=== PATIENT | male | born 1970 | race Caucasian/White ===

== ENCOUNTER 2017-01-26 09:16 | Emergency (ER) | payer BC ==
[2017-01-26] MEDS ORDERED: Albuterol/Ipratropium 3.0-0.5 MG/3 ML Neb Soln NEB ONE (09:32)
--- NOTE | 2017-01-26 09:33 | EDM.PDOC ---
ED HISTORY OF PRESENT ILLNESS - General Chief Complaint: Respiratory Problem Stated Complaint: POSSIBLE LUNG INFECTION Time Seen by Provider: 01/26/17 09:33 Source of Information: Reports: Patient - History of Present Illness INITIAL COMMENTS - FREE TEXT/NARRATIVE: HISTORY AND PHYSICAL: History of present illness: [] For one week increasing in severity keeps patient awake at night nonproductive No fever nausea vomiting chills sweats Review of systems: As per history of present illness and below otherwise all systems reviewed and negative. Past medical history: As per history of present illness and as reviewed below otherwise noncontributory. Surgical history: As per history of present illness and as reviewed below otherwise noncontributory. Social history: No reported history of drug or alcohol abuse. Family history: As per history of present illness and as reviewed below otherwise noncontributory. Physical exam: HEENT: Atraumatic, normocephalic, pupils reactive, negative for conjunctival pallor or scleral icterus, mucous membranes moist, throat clear, neck supple, nontender, trachea midline. Lungs: Clear to auscultation, breath sounds equal bilaterally, chest nontender. Heart: S1S2, regular, negative for clicks, rubs, or JVD. Abdomen: Soft, nondistended, nontender. Negative for masses or hepatosplenomegaly. Negative for costovertebral tenderness. Pelvis: Stable nontender. Genitourinary: Deferred. Rectal: Deferred. Extremities: Atraumatic, negative for cords or calf pain. Neurovascular unremarkable. Neuro: Awake, alert, oriented. Cranial nerves II through XII unremarkable. Cerebellum unremarkable. Motor and sensory unremarkable throughout. Exam nonfocal. Diagnostics: [] Chest 2 views Therapeutics: [] Dual neb Azithromycin 500 mg by mouth daily #6 no refill HFA Impression: [] Acute bronchitis Definitive disposition and diagnosis as appropriate pending reevaluation and review of above. - Related Data Allergies/ADRs: Allergies Allergy/AdvReac Type Severity Reaction Status Date / Time No Known Allergies Allergy Verified 01/26/17 09:23 Home Meds: Home Meds Lisinopril 01/26/17 [History] Past Medical History - Past Health History Medical/Surgical History: Denies Medical/Surgical History HEENT History: Reports: None Cardiovascular History: Reports: Hypertension Respiratory History: Reports: None Gastrointestinal History: Reports: GERD Genitourinary History: Reports: None Musculoskeletal History: Reports: Fracture Other Musculoskeletal History: left wrist and left knee Neurological History: Reports: None Psychiatric History: Reports: None Endocrine/Metabolic History: Reports: Obesity/BMI 30+ Hematologic History: Reports: None Immunologic History: Reports: None Oncologic (Cancer) History: Reports: None Dermatologic History: Reports: None - Infectious Disease History Infectious Disease History: Reports: Chicken pox - Past Surgical History Head Surgeries/Procedures: Reports: None HEENT Surgical History: Reports: None Cardiovascular Surgical History: Reports: None Respiratory Surgical History: Reports: None GI Surgical History: Reports: None Male Surgical History: Reports: None Endocrine Surgical History: Reports: None Neurological Surgical History: Reports: None Oncologic Surgical History: Reports: None Social & Family History - Family History Family Medical History: Noncontributory - Tobacco Use Smoking Status *Q: Never Smoker Second Hand Smoke Exposure: Yes - Caffeine Use Caffeine Use: Reports: Coffee - Alcohol Use Days Per Week of Alcohol Use: 3 Number of Drinks Per Day: 3 Total Drinks Per Week: 9 - Recreational Drug Use Recreational Drug Use: No ED ROS GENERAL - Review of Systems Review Of Systems: ROS reveals no pertinent complaints other than HPI. ED EXAM, GENERAL - Physical Exam Exam: See Below Course - Vital Signs Last Recorded V/S: Last Vital Signs Temp 37.1 C 01/26/17 09:23 Pulse 103 H 01/26/17 09:23 Resp 16 01/26/17 09:23 BP 170/90 H 01/26/17 09:23 Pulse Ox 95 01/26/17 09:23 - Orders/Labs/Meds Orders: Active Orders 24 hr Category Date Time Status RT Aerosol Therapy [RC] ASDIRECTED Care 01/26/17 09:32 Active Chest 2V [CR] Stat Exams 01/26/17 09:32 Taken Meds: Medications Discontinued Medications Generic Name Dose Route Start Last Admin Trade Name Freq PRN Reason Stop Dose Admin Albuterol/Ipratropium 3 ml 01/26/17 09:32 01/26/17 09:39 Duoneb 3.0-0.5 Mg/3 Ml NEB 01/26/17 09:33 3 ml ONETIME ONE Administration Departure - Departure Time of Disposition: 10:31 Disposition: Home, Self-Care 01 Condition: good Clinical Impression: Acute bronchitis Forms: ED Department Discharge Additional Instructions: Medication as prescribed Return if symptoms persist or worsen Followup with primary care in 2 weeks The following information is given to patients seen in the emergency department who are being discharged to home. This information is to outline your options for follow-up care. We provide all patients seen in our emergency department with a follow-up referral. The need for follow-up, as well as the timing and circumstances, are variable depending upon the specifics of your emergency department visit. If you don't have a primary care physician on staff, we will provide you with a referral. We always advise you to contact your personal physician following an emergency department visit to inform them of the circumstance of the visit and for follow-up with them and/or the need for any referrals to a consulting specialist. The emergency department will also refer you to a specialist when appropriate. This referral assures that you have the opportunity for follow-up care with a specialist. All of these measure are taken in an effort to provide you with optimal care, which includes your follow-up. Under all circumstances we always encourage you to contact your private physician who remains a resource for coordinating your care. When calling for follow-up care, please make the office aware that this follow-up is from your recent emergency room visit. If for any reason you are refused follow-up, please contact the [facility] emergency department at and asked to speak to the emergency department charge nurse. - My Orders Last 24 Hours: My Active Orders 01/26/17 09:32 RT Aerosol Therapy [RC] ASDIRECTED Chest 2V [CR] Stat - Assessment/Plan Last 24 Hours: My Active Orders 01/26/17 09:32 RT Aerosol Therapy [RC] ASDIRECTED Chest 2V [CR] Stat
[2017-01-26 10:49] VITALS: BP 159/77
--- NOTE | 2017-01-28 09:56 | CR ---
EXAM DATE: 01/26/17 PATIENT'S AGE: 46 Patient: LINSEY VALENCIA Facility: [place], [place] Site . Site : 1970 Study: XRay Chest [id number] 10:22:07 AM Ordering Physician: Doctor Taylor Final Report: HISTORY: Cough. Findings: PA and lateral view of the chest is provided. The lung volumes are diminished. The lungs are clear and there is no evidence for pleural effusion or pneumothorax. Cardiac silhouette size is on the upper limits of normal. This could be related to low lung volumes. Impression: Diminished lung volumes. The lungs are clear. Dictated by Vikash Condon MD @ Jan 26 2017 10:34AM (Electronic Signature) Report Signed by Proxy and Original Signed Document filed in the Medical Record. MTDD
== END 2017-01-26 10:45 | disposition home or self-care (01) ==
LOC: MW.ED 09:16
DX: J20.9 Acute bronchitis, unspecified (principal); I10 Essential (primary) hypertension
CPT/HCPCS: 71020; 71020-26; 94664; 99283; 99284

== ENCOUNTER 2017-02-01 11:42 | Inpatient (IN) | payer BC ==
[2017-02-01] MEDS ORDERED: Sodium Chloride 0.9% 2.5 ML Syringe FLUSH PRN (11:44)
[2017-02-01] MEDS ORDERED: Sodium Chloride 0.9% 10 ML Syringe FLUSH PRN (11:44)
[2017-02-01] MEDS ORDERED: Sodium Chloride 0.9% 1,000 ML IV ONE (11:44)
--- NOTE | 2017-02-01 11:46 | EDM.PDOC ---
ED HPI GENERAL MEDICAL PROBLEM - General Chief Complaint: Gastrointestinal Problem Stated Complaint: BLEEDING Time Seen by Provider: 02/01/17 11:43 - History of Present Illness INITIAL COMMENTS - FREE TEXT/NARRATIVE: HISTORY AND PHYSICAL: History of present illness: Patient 46-year-old white male concern of syncope times several associated with hematemesis x4-5 in last 24 hours and blood per rectum times multiple last 24 hours patient states he is somewhat surprising one year prior and was admitted to the hospital there they did upper and lower scope that was unremarkable. He denies chest pain shortness of breath, paramedics reported approximately 1 L of gross blood at the scene this occurred at home the patient reportedly syncopized also. Review of systems: As per history of present illness and below otherwise all systems reviewed and negative. Past medical history: As per history of present illness and as reviewed below otherwise noncontributory. Surgical history: As per history of present illness and as reviewed below otherwise noncontributory. Social history: No reported history of drug or alcohol abuse. Family history: As per history of present illness and as reviewed below otherwise noncontributory. Physical exam: HEENT: Atraumatic, normocephalic, pupils reactive, negative for conjunctival pallor or scleral icterus, mucous membranes moist, throat clear, neck supple, nontender, trachea midline. Lungs: Clear to auscultation, breath sounds equal bilaterally, chest nontender. Heart: S1S2, regular, negative for clicks, rubs, or JVD. Abdomen: Soft, nondistended, nontender. Negative for masses or hepatosplenomegaly. Negative for costovertebral tenderness. Pelvis: Stable nontender. Genitourinary: Deferred. Rectal: Deferred. Extremities: Atraumatic, negative for cords or calf pain. Neurovascular unremarkable. Neuro: Awake, alert, oriented. Cranial nerves II through XII unremarkable. Cerebellum unremarkable. Motor and sensory unremarkable throughout. Exam nonfocal. Diagnostics: CBC CMP troponin PT INR EKG chest x-ray UA type and screen Therapeutics: IV O2 monitor 0.9 normal saline 1 L bolus Protonix 80 mg bolus platonically milligram an hour drip Impression: #1 GI bleed #2 syncope Definitive disposition and diagnosis as appropriate pending reevaluation and review of above. Abdominal Pain Score (Numeric/FACES): 2 Left Ankle Pain Score (Numeric/FACES): 10 - Related Data Allergies Allergy/AdvReac Type Severity Reaction Status Date / Time No Known Allergies Allergy Verified 02/01/17 11:50 Home Meds: Home Meds Lisinopril 10 mg PO DAILY 01/26/17 [History] Past Medical History - Past Health History Medical/Surgical History: Denies Medical/Surgical History HEENT History: Reports: None Cardiovascular History: Reports: Hypertension Respiratory History: Reports: None Gastrointestinal History: Reports: GERD Genitourinary History: Reports: None Musculoskeletal History: Reports: Fracture Other Musculoskeletal History: left wrist and left knee Neurological History: Reports: None Psychiatric History: Reports: None Endocrine/Metabolic History: Reports: Obesity/BMI 30+ Hematologic History: Reports: None Immunologic History: Reports: None Oncologic (Cancer) History: Reports: None Dermatologic History: Reports: None - Infectious Disease History Infectious Disease History: Reports: Chicken pox - Past Surgical History Head Surgeries/Procedures: Reports: None HEENT Surgical History: Reports: None Cardiovascular Surgical History: Reports: None Respiratory Surgical History: Reports: None GI Surgical History: Reports: None Male Surgical History: Reports: None Endocrine Surgical History: Reports: None Neurological Surgical History: Reports: None Oncologic Surgical History: Reports: None Social & Family History - Family History Family Medical History: Noncontributory - Tobacco Use Smoking Status *Q: Never Smoker Second Hand Smoke Exposure: Yes - Caffeine Use Caffeine Use: Reports: Coffee - Alcohol Use Days Per Week of Alcohol Use: 3 Number of Drinks Per Day: 3 Total Drinks Per Week: 9 - Recreational Drug Use Recreational Drug Use: No ED ROS GENERAL - Review of Systems Review Of Systems: ROS reveals no pertinent complaints other than HPI. ED EXAM, GENERAL - Physical Exam Exam: See Below (See dictation) Course - Vital Signs Last Recorded V/S: Last Vital Signs Temp 37.6 C 02/03/17 20:00 Pulse 96 02/03/17 21:00 Resp 14 02/03/17 23:00 BP 132/84 02/03/17 23:00 Pulse Ox 98 02/03/17 23:00 - Orders/Labs/Meds Orders: Medication Orders Hydromorphone HCl (Dilaudid) 0.5 mg IVPUSH Q2H PRN PRN Reason: Pain (severe 7-10) Last Admin: 02/03/17 20:25 Dose: 0.5 mg Admin: 02/03/17 02:01 Dose: 0.5 mg Admin: 02/02/17 19:33 Dose: 0.5 mg Pantoprazole Sodium 80 mg/ (Sodium Chloride) 100 mls @ 10 mls/hr IV Q10H JANEE Last Admin: 02/03/17 16:32 Dose: 10 mls/hr Infusion: 02/03/17 16:29 Dose: 10 mls/hr Admin: 02/03/17 06:29 Dose: 10 mls/hr Infusion: 02/03/17 06:01 Dose: 10 mls/hr Admin: 02/02/17 20:01 Dose: 10 mls/hr Infusion: 02/02/17 19:30 Dose: 10 mls/hr Admin: 02/02/17 09:30 Dose: 10 mls/hr Lorazepam (Ativan) 0 mg IVPUSH Q4H PRN; Protocol PRN Reason: CIWAA Ondansetron HCl (Zofran) 4 mg IVPUSH Q6H JANEE Last Admin: 02/03/17 19:19 Dose: Not Given Admin: 02/03/17 14:23 Dose: Not Given Admin: 02/03/17 06:28 Dose: 4 mg Admin: 02/03/17 02:01 Dose: 4 mg Admin: 02/02/17 19:34 Dose: 4 mg Admin: 02/02/17 14:38 Dose: Not Given Admin: 02/02/17 10:11 Dose: Not Given Admin: 02/02/17 00:57 Dose: 4 mg Admin: 02/01/17 19:28 Dose: 4 mg Admin: 02/01/17 14:32 Dose: 4 mg Sodium Chloride (Saline Flush) 10 ml FLUSH ASDIRECTED PRN PRN Reason: Keep Vein Open Sodium Chloride (Saline Flush) 2.5 ml FLUSH ASDIRECTED PRN PRN Reason: Keep Vein Open Labs: Laboratory Tests 02/01/17 02/01/17 02/01/17 Range/Units 11:55 11:55 11:55 WBC 9.21 (4.0-11.0) K/uL RBC 2.69 L (4.50-5.90) M/uL Hgb 8.2 L (13.0-17.0) g/dL Hct 24.6 L (38.0-50.0) % MCV 91.4 (80.0-98.0) fL MCH 30.5 (27.0-32.0) pg MCHC 33.3 (31.0-37.0) g/dL RDW Std Deviation 52.9 (28.0-62.0) fl RDW Coeff of Tim[place] 16 H (11.0-15.0) % Plt Count 107 L (150-400) K/uL MPV 10.90 (7.40-12.00) fL Add Manual Diff YES Neutrophils % (Manual) 81 H (48.0-80.0) % Band Neutrophils % 8 % Lymphocytes % (Manual) 7 L (16.0-40.0) % Monocytes % (Manual) 3 (0.0-15.0) % Eosinophils % (Manual) 1 (0.0-7.0) % Nucleated RBC % 0.0 /100WBC Absolute Seg Neuts 7.5 Band Neutrophils # 0.7 Lymphocytes # (Manual) 0.6 Monocytes # (Manual) 0.3 Eosinophils # (Manual) 0.1 Nucleated RBCs # 0 K/uL Plt Morphology Comment INR 1.58 H (0.86-1.11) Sodium 136 (136-146) mmol/L Potassium 4.9 (3.5-5.1) mmol/L Chloride 108 (98-110) mmol/L Carbon Dioxide 17 L (21-31) mmol/L BUN 36 H (6.0-23.0) mg/dL Creatinine 0.8 (0.6-1.5) mg/dL Est Cr Clr Drug Dosing 114.15 mL/min Estimated GFR (MDRD) > 60.0 ml/min Glucose 156 H (60-110) mg/dL Calcium 8.1 L (8.8-10.8) mg/dL Total Bilirubin 2.2 H (0.1-1.5) mg/dL AST 35 (5-40) IU/L ALT 28 (8-54) IU/L Alkaline Phosphatase 49 (40-150) Total Protein 5.0 L (6.0-8.0) g/dL Albumin 2.7 L (3.5-5.0) g/dL Globulin 2.3 (2.0-3.5) g/dL Albumin/Globulin Ratio 1.2 L (1.3-2.8) Amylase 42 (10-90) U/L Ethyl Alcohol < 10.0 mg/dL Blood Type Antibody Screen Crossmatch 02/01/17 Range/Units 11:55 WBC (4.0-11.0) K/uL RBC (4.50-5.90) M/uL Hgb (13.0-17.0) g/dL Hct (38.0-50.0) % MCV (80.0-98.0) fL MCH (27.0-32.0) pg MCHC (31.0-37.0) g/dL RDW Std Deviation (28.0-62.0) fl RDW Coeff of Tim[place] (11.0-15.0) % Plt Count (150-400) K/uL MPV (7.40-12.00) fL Add Manual Diff Neutrophils % (Manual) (48.0-80.0) % Band Neutrophils % % Lymphocytes % (Manual) (16.0-40.0) % Monocytes % (Manual) (0.0-15.0) % Eosinophils % (Manual) (0.0-7.0) % Nucleated RBC % /100WBC Absolute Seg Neuts Band Neutrophils # Lymphocytes # (Manual) Monocytes # (Manual) Eosinophils # (Manual) Nucleated RBCs # K/uL Plt Morphology Comment INR (0.86-1.11) Sodium (136-146) mmol/L Potassium (3.5-5.1) mmol/L Chloride (98-110) mmol/L Carbon Dioxide (21-31) mmol/L BUN (6.0-23.0) mg/dL Creatinine (0.6-1.5) mg/dL Est Cr Clr Drug Dosing mL/min Estimated GFR (MDRD) ml/min Glucose (60-110) mg/dL Calcium (8.8-10.8) mg/dL Total Bilirubin (0.1-1.5) mg/dL AST (5-40) IU/L ALT (8-54) IU/L Alkaline Phosphatase (40-150) Total Protein (6.0-8.0) g/dL Albumin (3.5-5.0) g/dL Globulin (2.0-3.5) g/dL Albumin/Globulin Ratio (1.3-2.8) Amylase (10-90) U/L Ethyl Alcohol mg/dL Blood Type A POSITIVE Antibody Screen NEGATIVE Crossmatch See Detail Meds: Medications Generic Name Dose Route Start Last Admin Trade Name Freq PRN Reason Stop Dose Admin Hydromorphone HCl 0.5 mg 02/01/17 13:12 02/03/17 20:25 Dilaudid IVPUSH 0.5 mg Q2H PRN Administration Pain (severe 7-10) Pantoprazole Sodium 80 mg/ 100 mls @ 10 mls/hr 02/02/17 10:00 02/03/17 16:32 Sodium Chloride IV 10 mls/hr Q10H JANEE Administration Lorazepam 0 mg 02/02/17 14:08 Ativan IVPUSH Q4H PRN CIWAA Protocol Ondansetron HCl 4 mg 02/01/17 13:15 02/03/17 19:19 Zofran IVPUSH Not Given Q6H JANEE Sodium Chloride 10 ml 02/01/17 11:44 Saline Flush FLUSH ASDIRECTED PRN Keep Vein Open Sodium Chloride 2.5 ml 02/01/17 11:44 Saline Flush FLUSH ASDIRECTED PRN Keep Vein Open Discontinued Medications Generic Name Dose Route Start Last Admin Trade Name Freq PRN Reason Stop Dose Admin Diphenhydramine HCl 25 mg 02/01/17 13:22 02/01/17 14:33 Benadryl IV 02/01/17 13:23 25 mg ONETIME ONE Administration Fentanyl Confirm 02/02/17 08:54 02/02/17 11:01 Sublimaze Administered 02/02/17 08:55 Not Given Dose 100 mcg .ROUTE .STK-MED ONE Furosemide 20 mg 02/01/17 13:22 02/01/17 14:33 Lasix IVPUSH 02/01/17 13:23 20 mg ONETIME ONE Administration Furosemide 20 mg 02/03/17 10:07 02/03/17 10:22 Lasix IVPUSH 02/03/17 10:08 20 mg ONETIME ONE Administration Sodium Chloride 1,000 mls @ 999 mls/hr 02/01/17 11:44 02/01/17 12:02 Normal Saline IV 02/01/17 12:44 999 mls/hr STAT ONE Administration Pantoprazole Sodium 80 mg/ 100 mls @ 10 mls/hr 02/01/17 12:45 02/01/17 22:45 Sodium Chloride IV 10 mls/hr .Continuous JANEE Administration Sodium Chloride 1,000 mls @ 175 mls/hr 02/01/17 13:15 02/03/17 04:54 Normal Saline IV 175 mls/hr ASDIRECTED JANEE Administration Propofol Confirm 02/02/17 08:55 02/02/17 11:01 Diprivan 50 Ml Administered 02/02/17 08:56 Not Given Dose 50 mls @ as directed .ROUTE .STK-MED ONE Magnesium Sulfate 2 gm/ Premix 50 mls @ 50 mls/hr 02/03/17 07:16 02/03/17 07: 34 IV 02/03/17 08:15 50 mls/hr ONETIME ONE Administration Iopamidol 100 ml 02/03/17 07:52 02/03/17 07:55 Isovue-370 (76%) IVPUSH 02/03/17 07:53 100 ml ONETIME STA Administration Midazolam HCl Confirm 02/02/17 08:53 02/02/17 11:01 Versed 1 Mg/Ml Administered 02/02/17 08:54 Not Given Dose 2 mg .ROUTE .STK-MED ONE Ondansetron HCl 4 mg 02/01/17 12:51 02/01/17 12:56 Zofran IVPUSH 02/01/17 12:52 4 mg STAT STA Administration Pantoprazole Sodium 80 mg 02/01/17 12:34 02/01/17 12:45 Protonix Iv IVPUSH 02/01/17 12:35 80 mg .BOLUS ONE Administration Departure - Departure Time of Disposition: 02:00 Disposition: Admitted As Inpatient 65 Condition: fair Clinical Impression: Gastrointestinal hemorrhage, Syncope
[2017-02-01 12:26] LABS: CHLORIDE,CL 108 mmol/L (98-110); SODIUM,NA 136 mmol/L (136-146)
[2017-02-01] MEDS ORDERED: Pantoprazole 40 MG Vial IVPUSH ONE (12:34)
[2017-02-01] MEDS ORDERED: Ondansetron 4 MG/2 ML SDV IVPUSH STA (12:51)
[2017-02-01] MEDS: Pantoprazole 80 MG in Sodium Chloride 0.9% 100 ML IV SCH ×2 (12:56→22:45)
[2017-02-01] MEDS ORDERED: Furosemide 20 MG/2 ML VIAL IVPUSH ONE (13:22)
[2017-02-01] MEDS ORDERED: diphenhydrAMINE 50 MG/ML SDV IV ONE (13:22)
--- NOTE | 2017-02-01 13:39 | PCM.CONS ---
H&P History of Present Illness - General Date of Service: 02/01/17 Admit Problem/Dx: Admission Diagnosis/Problem Admission Diagnosis/Problem Bleeding gastric erosion Source of Information: Patient History Limitations: Reports: No limitations - History of Present Illness Initial Comments - Free Text/Narative: Patient is a 46-year-old male with a past medical history significant for upper GI bleed. This occurred last year after an episode of drinking. The patient had an upper GI scope performed by my partner which was normal. He was discharged on pantoprazole. Or the past year the patient denies ever having any stigmata of GI bleed. He has not been taking any prescription medications. He has a primary care physician he sees in [place] as he only works in [place] seasonally. Last night around midnight he started vomiting blood. This was followed by black tarry stools and syncope. This morning he went to work. When he got to work he went to the bathroom and the next thing he remembers is waking up in a pool of bloody vomit with a hole through the wall of the bathroom. He was brought to the ED by EMS. On arrival his vital signs were stable. His hemoglobin was 8.2 compared to 10.3 last year. An NG was placed which returned a large amount of old blood. The patient denies any NSAID use. He has occasional heartburn but takes [id number] medications for this intermittently. He denies any current or past abdominal pain. He denies any family history of cancer, ulcers, or bleeding/clotting disorders. He drinks intermittently. His last drink was 2 weeks ago. He denies smoking or drug use. He denies any other past medical history or surgical history. On reviewing his past medical history, however, he dose take Lisinopril for high blood pressure. - Related Data Allergies/Adverse Reactions: Allergies Allergy/AdvReac Type Severity Reaction Status Date / Time No Known Allergies Allergy Verified 02/01/17 11:50 Home Medications: Home Meds Lisinopril 10 mg PO DAILY 01/26/17 [History] Past Medical History - Past Health History Medical/Surgical History: Denies Medical/Surgical History HEENT History: Reports: None Cardiovascular History: Reports: Hypertension Respiratory History: Reports: None Gastrointestinal History: Reports: GERD Genitourinary History: Reports: None Musculoskeletal History: Reports: Fracture Other Musculoskeletal History: left wrist and left knee Neurological History: Reports: None Psychiatric History: Reports: None Endocrine/Metabolic History: Reports: Obesity/BMI 30+ Hematologic History: Reports: None Immunologic History: Reports: None Oncologic (Cancer) History: Reports: None Dermatologic History: Reports: None - Infectious Disease History Infectious Disease History: Reports: Chicken pox - Past Surgical History Head Surgeries/Procedures: Reports: None HEENT Surgical History: Reports: None Cardiovascular Surgical History: Reports: None Respiratory Surgical History: Reports: None GI Surgical History: Reports: None Male Surgical History: Reports: None Endocrine Surgical History: Reports: None Neurological Surgical History: Reports: None Oncologic Surgical History: Reports: None Social & Family History - Family History Family Medical History: Noncontributory - Tobacco Use Smoking Status *Q: Never Smoker Second Hand Smoke Exposure: Yes - Caffeine Use Caffeine Use: Reports: Coffee Caffeine Use Comment: 1-2cups/day - Alcohol Use Days Per Week of Alcohol Use: 3 Number of Drinks Per Day: 3 Total Drinks Per Week: 9 - Recreational Drug Use Recreational Drug Use: No H&P Review of Systems - Review of Systems: Review Of Systems: ROS reveals no pertinent complaints other than HPI. Exam - Exam Exam: See Below - Vital Signs Vital Signs: Last Vital Signs Temp 36.6 C 02/01/17 11:43 Pulse 99 02/01/17 12:46 Resp 19 02/01/17 12:46 BP 101/50 L 02/01/17 12:46 Pulse Ox 100 02/01/17 12:46 Weight: 113.398 kg - Exam General: alert, oriented, cooperative HEENT: Conjunctiva clear, EACs clear Lungs: Clear to auscultation, Normal respiratory effort Cardiovascular: regular rate, regular rhythm Abdomen: soft, other (Abdomen is obese with striae. It is soft, nontender, and nondistended. NG with dark bloody fluid ) Rectal (Males) Exam: Deferred Extremities: normal inspection, normal pulses Skin: warm, dry, intact Neuro Extensive - Mental Status: alert, normal mood/affect, normal cognition Psychiatric: alert, normal affect, normal mood - Patient Data Result Diagrams: 02/01/17 11:55 02/01/17 11:55 Consult PN Assessment/Plan Procedures: Procedures CHEST X-RAY 2VW FRONTAL&LATL (01/26/17) COMPLETE CBC W/AUTO DIFF WBC (02/22/16) COMPREHEN METABOLIC PANEL (02/22/16) EGD DIAGNOSTIC BRUSH WASH (02/22/16) EMERGENCY DEPT VISIT (01/26/17) EVALUATE PT USE OF INHALER (01/26/17) PROTHROMBIN TIME (02/22/16) ROUTINE VENIPUNCTURE (02/22/16) THROMBOPLASTIN TIME PARTIAL (02/22/16) (1) GI bleed SNOMED Code(s): 29648438 Code(s): K92.2 - GASTROINTESTINAL HEMORRHAGE, UNSPECIFIED Current Visit: No Qualifiers: GI bleed type/associated pathology: unspecified gastrointestinal hemorrhage type Qualified Code(s): K92.2 - Gastrointestinal hemorrhage, unspecified Problem List Initiated/Reviewed/Updated: Yes My Orders last 24 hours: My Active Orders 02/01/17 13:32 Head wo Cont [CT] Routine Plan: Patient is a 46-year-old male with a recurrent GI bleed. I suspect this is coming from an upper GI source. He is currently stable in the emergency room with no evidence of active bleeding. I recommend admission to medicine, IV PPI therapy, n.p.o., q6 hours hemoglobin checks and resuscitation. The patient and I discussed repeating an upper GI after he is resuscitated and as long as he stays stable overnight. We discussed the procedure as well as expected perioperative course. I explained that i would be taking biopsies of his stomach and any abnormal pathology that I see. We discussed the risks including bleeding and perforation. Looking back at his past medical history he has had an 18 pound weight loss since he was seen last year. I do not know if this is intentional or not. It would be helpful if we could get notes from his primary care provider down in [place]. If his upper GI is normal the next step would be planning for a colonoscopy. If he has no further episodes of bleeding this could be done next week as an outpatient. If he bleeds again or his hemoglobin continues to drift down and he now starts requiring transfusions I may need to scope him sooner than tomorrow morning. If he becomes hemodynamically unstable he would need to be transferred to another facility. Will continue to follow patient during this admission. Appreciate medicines care of the patient. Please call with any questions or concerns.
[2017-02-01] MEDS: Sodium Chloride 0.9% 1,000 ML IV SCH ×2 (14:00→18:04)
--- NOTE | 2017-02-01 14:18 | PCM.HP ---
H&P History of Present Illness - General Date of Service: 02/01/17 Admit Problem/Dx: Admission Diagnosis/Problem Admission Diagnosis/Problem Bleeding gastric erosion Source of Information: Patient History Limitations: Reports: No limitations - History of Present Illness Initial Comments - Free Text/Narative: Feb 01, 2017: The patient is a 46-year-old gentleman who presented to the emergency room after vomiting blood. The patient reports that around midnight he was awoken with feelings of nausea and mid of vomiting blood. Patient says that this was followed by black, tarry stools. The patient has denied use of NSAIDs or excessive use of aspirin. Patient was having problems with GI bleed approximately 10 months ago in which he was scoped and no source of the bleeding was found. The patient today in the emergency room was noted to have dark colored blood with clots an NG tube. The patient also had felt dizzy and lightheaded and had a syncopal episode while in a hotel. Patient normally lives in [place] and is here part-time working. The patient has denied any abdominal pain. The patient says that he does not use tobacco or alcohol frequently. The patient is also reported that he has some kind of abnormalities with his red blood cells over the patient is not sure exactly what this is. The patient has been taking lisinopril chronically for his hypertension. Up until this incident the patient had been in his usual state of health. Onset of Symptoms: Reports: today Duration of Symptoms: Reports: Hour(s):, Getting worse Location: Reports: abdomen Quality: Reports: Dull Improves with: Reports: None Worsens with: Reports: None Associated Symptoms: Reports: nausea/vomiting, other (dizziness and lightheadedness) - Related Data Allergies/Adverse Reactions: Allergies Allergy/AdvReac Type Severity Reaction Status Date / Time No Known Allergies Allergy Verified 02/01/17 11:50 Home Medications: Home Meds Lisinopril 10 mg PO DAILY 01/26/17 [History] Past Medical History - Past Health History Medical/Surgical History: Denies Medical/Surgical History HEENT History: Reports: None Cardiovascular History: Reports: Hypertension Respiratory History: Reports: None Gastrointestinal History: Reports: GERD, GI bleed Genitourinary History: Reports: None Musculoskeletal History: Reports: Fracture Other Musculoskeletal History: left wrist and left knee Neurological History: Reports: None Psychiatric History: Reports: None Endocrine/Metabolic History: Reports: Obesity/BMI 30+ Hematologic History: Reports: None Immunologic History: Reports: None Oncologic (Cancer) History: Reports: None Dermatologic History: Reports: None - Infectious Disease History Infectious Disease History: Reports: Chicken pox - Past Surgical History Head Surgeries/Procedures: Reports: None HEENT Surgical History: Reports: None Cardiovascular Surgical History: Reports: None Respiratory Surgical History: Reports: None GI Surgical History: Reports: None Male Surgical History: Reports: None Endocrine Surgical History: Reports: None Neurological Surgical History: Reports: None Oncologic Surgical History: Reports: None Social & Family History - Family History Family Medical History: Noncontributory - Tobacco Use Smoking Status *Q: Never Smoker Second Hand Smoke Exposure: Yes - Caffeine Use Caffeine Use: Reports: Coffee Caffeine Use Comment: 1-2cups/day - Alcohol Use Days Per Week of Alcohol Use: 3 Number of Drinks Per Day: 3 Total Drinks Per Week: 9 - Recreational Drug Use Recreational Drug Use: No H&P Review of Systems - Review of Systems: Review Of Systems: See Below General: Reports: weakness HEENT: Reports: no symptoms Pulmonary: Reports: No Symptoms Cardiovascular: Reports: no symptoms Gastrointestinal: Reports: Abdominal pain, Black stool, Hematemesis, Hematochezia, Melena Genitourinary: Reports: no symptoms Musculoskeletal: Reports: no symptoms Skin: Reports: no symptoms Psychiatric: Reports: no symptoms Neurological: Reports: Dizziness, Syncope Hematologic/Lymphatic: Reports: anemia, easy bleeding Immunologic: Reports: no symptoms Exam - Exam Exam: See Below - Vital Signs Vital Signs: Last Vital Signs Temp 36.6 C 02/01/17 11:43 Pulse 99 02/01/17 12:46 Resp 19 02/01/17 12:46 BP 101/50 L 02/01/17 12:46 Pulse Ox 100 02/01/17 12:46 Weight: 113.398 kg - Exam Quality Assessment: supplemental oxygen General: alert, oriented, cooperative, mild distress HEENT: Conjunctiva clear, EOMI, Mucosa moist & pink Neck: supple, trachea midline Lungs: Clear to auscultation, Normal respiratory effort Cardiovascular: regular rate, regular rhythm, normal S1, normal S2 Abdomen: normal bowel sounds, soft. No: organomegaly, guarding, rigidity, rebound Back Exam: normal inspection Extremities: normal inspection Skin: warm, dry, intact Neurological: cranial nerves intact Neuro Extensive - Mental Status: alert, oriented x3 - Patient Data Result Diagrams: 02/01/17 11:55 02/01/17 11:55 *Q Meaningful Use (ADM) - VTE *Q VTE Criteria *Q: VTE Mechanical Contraindications *Q: At Risk for Falls VTE Pharmacological Contraindications *Q: Active Hemorrhage - VTE Risk Assess *Q Each Risk Factor Represents 1 Point: Age 41 - 59 years Total Score 1 Point Risk Factors: 1 - Stroke *Q Stroke Criteria *Q: - AMI *Q AMI Criteria *Q: - Problem List (1) GI bleed SNOMED Code(s): 05357813 ICD Code: K92.2 - GASTROINTESTINAL HEMORRHAGE, UNSPECIFIED Status: Acute Priority: High Current Visit: Yes Qualifiers: GI bleed type/associated pathology: unspecified gastrointestinal hemorrhage type Qualified Code(s): K92.2 - Gastrointestinal hemorrhage, unspecified (2) Coagulopathy SNOMED Code(s): 04206289 ICD Code: D68.9 - COAGULATION DEFECT, UNSPECIFIED Status: Acute Priority : High Current Visit: Yes (3) Thrombocytopenia SNOMED Code(s): 067592639 ICD Code: D69.6 - THROMBOCYTOPENIA, UNSPECIFIED Status: Acute Current Visit: No (4) Anemia due to acute blood loss SNOMED Code(s): 395657208 ICD Code: D62 - ACUTE POSTHEMORRHAGIC ANEMIA Status: Acute Priority: High Current Visit: Yes Problem List Initiated/Reviewed/Updated: Yes Orders Last 24hrs: Active Orders 24 hr Category Date Time Status Patient Status [ADT] Routine ADT 02/01/17 13:13 Active Notify Provider Consults [RC] ASDIRECTED Care 02/01/17 13:19 Active Oxygen Therapy [RC] PRN Care 02/01/17 13:13 Active Up ad Lorrie [RC] ASDIRECTED Care 02/01/17 13:12 Active VTE/DVT Education [RC] PER UNIT ROUTINE Care 02/01/17 13:13 Active Vital Signs [RC] Q4H Care 02/01/17 13:13 Active Consult to Physician [CONS] Routine Cons 02/01/17 13:12 Active Nothing per Oral Now Diet [DIET] Diet 02/01/17 Dinner Active Head wo Cont [CT] Routine Exams 02/01/17 13:32 Ordered RED BLOOD CELLS LP [BBK] Stat Lab 02/01/17 11:55 Results HYDROmorphone [Dilaudid] Med 02/01/17 13:12 Active 0.5 mg IVPUSH Q2H PRN Ondansetron [Zofran] Med 02/01/17 13:15 Active 4 mg IVPUSH Q6H Sodium Chloride 0.9% [Normal Saline] 1,000 ml Med 02/01/17 13:15 Active IV ASDIRECTED Transfuse PRBC [Transfuse Red Blood Cells] [COMM] Oth 02/01/17 13:22 Ordered Urgent VTE Pharmacological Contraindications [AST] Per Unit Oth 02/01/17 13:12 Ordered Routine Resuscitation Status Routine Resus Stat 02/01/17 13:12 Ordered Medication Orders Hydromorphone HCl (Dilaudid) 0.5 mg IVPUSH Q2H PRN PRN Reason: Pain (severe 7-10) Pantoprazole Sodium 80 mg/ (Sodium Chloride) 100 mls @ 10 mls/hr IV .Continuous JANEE Last Admin: 02/01/17 12:56 Dose: 10 mls/hr Sodium Chloride (Normal Saline) 1,000 mls @ 175 mls/hr IV ASDIRECTED JANEE Ondansetron HCl (Zofran) 4 mg IVPUSH Q6H JANEE Sodium Chloride (Saline Flush) 10 ml FLUSH ASDIRECTED PRN PRN Reason: Keep Vein Open Sodium Chloride (Saline Flush) 2.5 ml FLUSH ASDIRECTED PRN PRN Reason: Keep Vein Open Assessment/Plan Comment:: Feb 01, 2017: The patient is a 46-year-old gentleman who came into the emergency department with GI bleed. The patient has had dark red blood as opposed bright red blood. He will be admitted to intensive care for monitoring with electronic ICU. I've also ordered transfusion of 2 units of packed red blood cells. The patient is also on a continuous Protonix drip. Surgery has been consulted to assist in the management of this patient in particular if endoscopy evaluation is needed. The patient normally has hypertension but he will be kept n.p.o. in his medicines will be held for right now. The patient's hemoglobin is at 8.2 g/dL and these will be monitored every 6 hours to track trends to see if the patient still continuing to bleed. It's patient does continue to bleed or he requires pressor support or otherwise becomes unstable we'll consider the patient for transfer. For now, the patient is hemodynamically stable and his vital signs of be monitored very closely. The patient does have an INR of 1.5 without a history of alcohol abuse or anticoagulation therapy. This will be monitored closely. See the patient in followup and his overall treatment plan will be adjusted as conditions and information indicates.
[2017-02-01] MEDS: Ondansetron 4 MG/2 ML SDV IVPUSH SCH ×2 (14:32→19:28)
--- NOTE | 2017-02-01 17:10 | PCM.SN ---
- Free Text/Narrative Note: I came to check on the patient in the ICU. He is currently receiving 2 units of blood. He has mild tachycardia with a HR of 100. HIs last BP was 117/75. He put out 750ml of urine. Subjectively he feels well. His NG has had scant dark brown output since arriving to the ICU. His abdomen is soft and nontender. Will still plan on scope in the am unless he has any acute changes overnight.
--- NOTE | 2017-02-01 17:50 | PCM.PREANE ---
Preanesthetic Assessment - Anesthesia/Transfusion/Family Hx Anesthesia History: Prior Anesthesia Without Reaction Transfusion History: No Prior Transfusion(s) - Review of Systems General: No Symptoms Pulmonary: No Symptoms Cardiovascular: Other (Tachycardia) Gastrointestinal: Other (NGT to LIS with scant dark red rerturn at this time) Neurological: No Symptoms Other: Reports: None - Physical Assessment Pulse: 110 O2 Sat by Pulse Oximetry: 96 Respiratory Rate: 15 Temperature: 98.6 F Vital Signs: Last Vital Signs Temp 98.4 F 02/01/17 16:00 Pulse 103 H 02/01/17 15:30 Resp 15 02/01/17 17:00 BP 119/67 02/01/17 17:00 Pulse Ox 96 02/01/17 17:00 Height: 5 ft 8.9 in Weight: 113.398 kg ASA Class: 2E Mental Status: Alert & Oriented x3 Airway Class: Mallampati = 2 Dentition: Reports: Normal Dentition Thyro-Mental Finger Breadths: 3 Mouth Opening Finger Breadths: 3 ROM/Head Extension: Full Lungs: Clear to auscultation, Normal respiratory effort Cardiovascular: Regular Rhythm, Tachycardia - Lab Values: Laboratory Last Values WBC 9.21 K/uL (4.0-11.0) 02/01/17 11:55 RBC 2.69 M/uL (4.50-5.90) L 02/01/17 11:55 Hgb 8.2 g/dL (13.0-17.0) L 02/01/17 11:55 Hct 24.6 % (38.0-50.0) L 02/01/17 11:55 MCV 91.4 fL (80.0-98.0) 02/01/17 11:55 MCH 30.5 pg (27.0-32.0) 02/01/17 11:55 MCHC 33.3 g/dL (31.0-37.0) 02/01/17 11:55 RDW Std Deviation 52.9 fl (28.0-62.0) 02/01/17 11:55 RDW Coeff of Timi 16 % (11.0-15.0) H 02/01/17 11:55 Plt Count 107 K/uL (150-400) L 02/01/17 11:55 MPV 10.90 fL (7.40-12.00) 02/01/17 11:55 Add Manual Diff YES 02/01/17 11:55 Neutrophils % (Manual) 81 % (48.0-80.0) H 02/01/17 11:55 Band Neutrophils % 8 % 02/01/17 11:55 Lymphocytes % (Manual) 7 % (16.0-40.0) L 02/01/17 11:55 Monocytes % (Manual) 3 % (0.0-15.0) 02/01/17 11:55 Eosinophils % (Manual) 1 % (0.0-7.0) 02/01/17 11:55 Nucleated RBC % 0.0 /100WBC 02/01/17 11:55 Absolute Seg Neuts 7.5 02/01/17 11:55 Band Neutrophils # 0.7 02/01/17 11:55 Lymphocytes # (Manual) 0.6 02/01/17 11:55 Monocytes # (Manual) 0.3 02/01/17 11:55 Eosinophils # (Manual) 0.1 02/01/17 11:55 Nucleated RBCs # 0 K/uL 02/01/17 11:55 Plt Morphology Comment 02/01/17 11:55 INR 1.58 (0.86-1.11) H 02/01/17 11:55 Sodium 136 mmol/L (136-146) 02/01/17 11:55 Potassium 4.9 mmol/L (3.5-5.1) 02/01/17 11:55 Chloride 108 mmol/L (98-110) 02/01/17 11:55 Carbon Dioxide 17 mmol/L (21-31) L 02/01/17 11:55 BUN 36 mg/dL (6.0-23.0) H 02/01/17 11:55 Creatinine 0.8 mg/dL (0.6-1.5) 02/01/17 11:55 Est Cr Clr Drug Dosing 114.15 mL/min 02/01/17 11:55 Estimated GFR (MDRD) > 60.0 ml/min 02/01/17 11:55 Glucose 156 mg/dL (60-110) H 02/01/17 11:55 Calcium 8.1 mg/dL (8.8-10.8) L 02/01/17 11:55 Total Bilirubin 2.2 mg/dL (0.1-1.5) H 02/01/17 11:55 AST 35 IU/L (5-40) 02/01/17 11:55 ALT 28 IU/L (8-54) 02/01/17 11:55 Alkaline Phosphatase 49 (40-150) 02/01/17 11:55 Total Protein 5.0 g/dL (6.0-8.0) L 02/01/17 11:55 Albumin 2.7 g/dL (3.5-5.0) L 02/01/17 11:55 Globulin 2.3 g/dL (2.0-3.5) 02/01/17 11:55 Albumin/Globulin Ratio 1.2 (1.3-2.8) L 02/01/17 11:55 Amylase 42 U/L (10-90) 02/01/17 11:55 Urine Color YELLOW 02/01/17 14:28 Urine Appearance CLEAR 02/01/17 14:28 Urine pH 6.0 (5.0-8.0) 02/01/17 14:28 Ur Specific [place] 1.010 (1.001-1.035) 02/01/17 14:28 Urine Protein NEGATIVE mg/dL (NEGATIVE) 02/01/17 14:28 Urine Glucose (UA) NEGATIVE mg/dL (NEGATIVE) 02/01/17 14:28 Urine Ketones NEGATIVE mg/dL (NEGATIVE) 02/01/17 14:28 Urine Occult Blood NEGATIVE (NEGATIVE) 02/01/17 14:28 Urine Nitrite NEGATIVE (NEGATIVE) 02/01/17 14:28 Urine Bilirubin NEGATIVE (NEGATIVE) 02/01/17 14:28 Urine Urobilinogen 0.2 EU/dL (<2.0) 02/01/17 14:28 Ur Leukocyte Esterase NEGATIVE (NEGATIVE) 02/01/17 14:28 Urine RBC 0-1 (0-2/HPF) 02/01/17 14:28 Urine WBC 0-1 (0-5/HPF) 02/01/17 14:28 Ur Epithelial Cells RARE (NONE-FEW) 02/01/17 14:28 Urine Bacteria FEW (NEGATIVE) 02/01/17 14:28 Hyaline Casts 0-2 (0-2/LPF) 02/01/17 14:28 Urine Mucus LIGHT (NONE-MOD) 02/01/17 14:28 Ethyl Alcohol < 10.0 mg/dL 02/01/17 11:55 Blood Type A POSITIVE 02/01/17 11:55 Antibody Screen NEGATIVE 02/01/17 11:55 Crossmatch See Detail 02/01/17 11:55 - Allergies Allergies/Adverse Reactions: Allergies Allergy/AdvReac Type Severity Reaction Status Date / Time No Known Allergies Allergy Verified 02/01/17 11:50 - Acknowledgements Anesthesia Type Planned: General Anesthesia Pt an Appropriate Candidate for the Planned Anesthesia: Yes Alternatives and Risks of Anesthesia Discussed w Pt/Guardian: Yes Pt/Guardian Understands and Agrees with Anesthesia Plan: Yes PreAnesthesia Questionnaire - Past Health History Medical/Surgical History: Denies Medical/Surgical History HEENT History: Reports: None Cardiovascular History: Reports: Hypertension Respiratory History: Reports: None Gastrointestinal History: Reports: GERD, GI bleed (Recurrent) Genitourinary History: Reports: None Musculoskeletal History: Reports: Fracture Other Musculoskeletal History: left wrist and left knee Neurological History: Reports: None Psychiatric History: Reports: None Endocrine/Metabolic History: Reports: Obesity/BMI 30+ Hematologic History: Reports: Other (see below) (History of thrombocytopenia of unknown cause) Immunologic History: Reports: None Oncologic (Cancer) History: Reports: None Dermatologic History: Reports: None - Infectious Disease History Infectious Disease History: Reports: Chicken pox - Past Surgical History Head Surgeries/Procedures: Reports: None HEENT Surgical History: Reports: None Cardiovascular Surgical History: Reports: None Respiratory Surgical History: Reports: None GI Surgical History: Reports: EGD (2016 for GI bleed) Male Surgical History: Reports: None Endocrine Surgical History: Reports: None Neurological Surgical History: Reports: None Oncologic Surgical History: Reports: None - SUBSTANCE USE Smoking Status *Q: Never Smoker Second Hand Smoke Exposure: Yes Days Per Week of Alcohol Use: 3 Number of Drinks Per Day: 3 Total Drinks Per Week: 9 Recreational Drug Use History: No - HOME MEDS Home Medications: Home Meds Lisinopril 10 mg PO DAILY 01/26/17 [History] - CURRENT (IN HOUSE) MEDS Current Meds: Current Medications Hydromorphone HCl (Dilaudid) 0.5 mg IVPUSH Q2H PRN PRN Reason: Pain (severe 7-10) Pantoprazole Sodium 80 mg/ (Sodium Chloride) 100 mls @ 10 mls/hr IV .Continuous JANEE Last Admin: 02/01/17 12:56 Dose: 10 mls/hr Sodium Chloride (Normal Saline) 1,000 mls @ 175 mls/hr IV ASDIRECTED JANEE Last Admin: 02/01/17 14:00 Dose: 175 mls/hr Ondansetron HCl (Zofran) 4 mg IVPUSH Q6H JANEE Last Admin: 02/01/17 14:32 Dose: 4 mg Sodium Chloride (Saline Flush) 10 ml FLUSH ASDIRECTED PRN PRN Reason: Keep Vein Open Sodium Chloride (Saline Flush) 2.5 ml FLUSH ASDIRECTED PRN PRN Reason: Keep Vein Open Discontinued Medications Diphenhydramine HCl (Benadryl) 25 mg IV ONETIME ONE Stop: 02/01/17 13:23 Last Admin: 02/01/17 14:33 Dose: 25 mg Furosemide (Lasix) 20 mg IVPUSH ONETIME ONE Stop: 02/01/17 13:23 Last Admin: 02/01/17 14:33 Dose: 20 mg Sodium Chloride (Normal Saline) 1,000 mls @ 999 mls/hr IV STAT ONE Stop: 02/01/17 12:44 Last Admin: 02/01/17 12:02 Dose: 999 mls/hr Ondansetron HCl (Zofran) 4 mg IVPUSH STAT STA Stop: 02/01/17 12:52 Last Admin: 02/01/17 12:56 Dose: 4 mg Pantoprazole Sodium (Protonix Iv) 80 mg IVPUSH .BOLUS ONE Stop: 02/01/17 12:35 Last Admin: 02/01/17 12:45 Dose: 80 mg
[2017-02-02] MEDS: Ondansetron 4 MG/2 ML SDV IVPUSH SCH ×4 (00:57→19:34)
[2017-02-02] MEDS: Sodium Chloride 0.9% 1,000 ML IV SCH ×3 (04:07→21:58)
[2017-02-02] MEDS ORDERED: Midazolam 1 MG/ML 2 ML SDV ONE (08:53)
[2017-02-02] MEDS ORDERED: fentaNYL 100 MCG/2 ML SDV ONE (08:54)
--- NOTE | 2017-02-02 09:03 | PCM.PN ---
- General Info Date of Service: 02/02/17 Admission Dx/Problem (Free Text): GI bleed Subjective Update: Patient had two bowel movements and one episode of vomiting last night. NG was pulled out incidentally. Patient feels well this morning. Denies nausea. Abdomen has no pain or distension. No acute events otherwise overnight. Complaining of left ankle pain this am. - Review of Systems General: Reports: No Symptoms HEENT: Reports: no symptoms Pulmonary: Reports: no symptoms Cardiovascular: Reports: No Symptoms Gastrointestinal: Reports: Melena Genitourinary: Reports: no symptoms Musculoskeletal: Reports: other (left ankle pain) Neurological: Reports: No Symptoms - Patient Data Vitals - most recent: Last Vital Signs Temp 36.6 C 02/02/17 04:00 Pulse 97 02/02/17 07:00 Resp 12 02/02/17 07:00 BP 126/75 02/02/17 07:00 Pulse Ox 98 02/02/17 07:00 Weight - most recent: 113.398 kg I&O - last 24 hours: Intake & Output 02/01/17 02/02/17 02/02/17 22:59 06:59 14:59 Intake Total 462 1000 Output Total 800 2250 Balance -338 -1250 Lab Results last 24 hrs: Laboratory Results - last 24 hr 02/01/17 02/01/17 02/02/17 Range/Units 14:28 21:38 05:00 WBC 13.33 H 11.13 H (4.0-11.0) K/uL RBC 3.25 L 3.06 L (4.50-5.90) M/uL Hgb 9.9 L 9.3 L (13.0-17.0) g/dL Hct 29.3 L 27.7 L (38.0-50.0) % MCV 90.2 90.5 (80.0-98.0) fL MCH 30.5 30.4 (27.0-32.0) pg MCHC 33.8 33.6 (31.0-37.0) g/dL RDW Std Deviation 51.6 52.9 (28.0-62.0) fl RDW Coeff of [place] 16 H 17 H (11.0-15.0) % Plt Count 82 L 71 L (150-400) K/uL MPV 10.80 11.20 (7.40-12.00) fL Neut % (Auto) 71.5 75.9 (48.0-80.0) % Lymph % (Auto) 16.1 13.7 L (16.0-40.0) % [place] % (Auto) 12.2 10.2 (0.0-15.0) % Eos % (Auto) 0.2 0.1 (0.0-7.0) % Baso % (Auto) 0.0 0.1 (0.0-1.5) % Neut # (Auto) 9.5 H 8.5 H (1.4-5.7) K/uL Lymph # (Auto) 2.2 1.5 (0.6-2.4) K/uL [place] # (Auto) 1.6 H 1.1 H (0.0-0.8) K/uL Eos # (Auto) 0.0 0.0 (0.0-0.7) K/uL Baso # (Auto) 0.0 0.0 (0.0-0.1) K/uL Nucleated RBC % 0.0 0.0 /100WBC Nucleated RBCs # 0 0 K/uL Urine Color YELLOW Urine Appearance CLEAR Urine pH 6.0 (5.0-8.0) Ur Specific [place] 1.010 (1.001-1.035) Urine Protein NEGATIVE (NEGATIVE) mg/dL Urine Glucose (UA) NEGATIVE (NEGATIVE) mg/dL Urine Ketones NEGATIVE (NEGATIVE) mg/dL Urine Occult Blood NEGATIVE (NEGATIVE) Urine Nitrite NEGATIVE (NEGATIVE) Urine Bilirubin NEGATIVE (NEGATIVE) Urine Urobilinogen 0.2 (<2.0) EU/dL Ur Leukocyte Esterase NEGATIVE (NEGATIVE) Urine RBC 0-1 (0-2/HPF) Urine WBC 0-1 (0-5/HPF) Ur Epithelial Cells RARE (NONE-FEW) Urine Bacteria FEW (NEGATIVE) Hyaline Casts 0-2 (0-2/LPF) Urine Mucus LIGHT (NONE-MOD) Med Orders - Current: Current Medications Hydromorphone HCl (Dilaudid) 0.5 mg IVPUSH Q2H PRN PRN Reason: Pain (severe 7-10) Pantoprazole Sodium 80 mg/ (Sodium Chloride) 100 mls @ 10 mls/hr IV .Continuous JANEE Last Admin: 02/01/17 22:45 Dose: 10 mls/hr Sodium Chloride (Normal Saline) 1,000 mls @ 175 mls/hr IV ASDIRECTED JANEE Last Admin: 02/02/17 04:07 Dose: 175 mls/hr Ondansetron HCl (Zofran) 4 mg IVPUSH Q6H JANEE Last Admin: 02/02/17 00:57 Dose: 4 mg Sodium Chloride (Saline Flush) 10 ml FLUSH ASDIRECTED PRN PRN Reason: Keep Vein Open Sodium Chloride (Saline Flush) 2.5 ml FLUSH ASDIRECTED PRN PRN Reason: Keep Vein Open Discontinued Medications Diphenhydramine HCl (Benadryl) 25 mg IV ONETIME ONE Stop: 02/01/17 13:23 Last Admin: 02/01/17 14:33 Dose: 25 mg Fentanyl (Sublimaze) Confirm Administered Dose 100 mcg .ROUTE .STK-MED ONE Stop: 02/02/17 08:55 Furosemide (Lasix) 20 mg IVPUSH ONETIME ONE Stop: 02/01/17 13:23 Last Admin: 02/01/17 14:33 Dose: 20 mg Sodium Chloride (Normal Saline) 1,000 mls @ 999 mls/hr IV STAT ONE Stop: 02/01/17 12:44 Last Admin: 02/01/17 12:02 Dose: 999 mls/hr Propofol (Diprivan 50 Ml) Confirm Administered Dose 50 mls @ as directed .ROUTE .STK-MED ONE Stop: 02/02/17 08:56 Midazolam HCl (Versed 1 Mg/Ml) Confirm Administered Dose 2 mg .ROUTE .STK-MED ONE Stop: 02/02/17 08:54 Ondansetron HCl (Zofran) 4 mg IVPUSH STAT STA Stop: 02/01/17 12:52 Last Admin: 02/01/17 12:56 Dose: 4 mg Pantoprazole Sodium (Protonix Iv) 80 mg IVPUSH .BOLUS ONE Stop: 02/01/17 12:35 Last Admin: 02/01/17 12:45 Dose: 80 mg - Exam General: alert, oriented HEENT: Pupils equal, Pupils reactive Lungs: Clear to auscultation, Normal respiratory effort Cardiovascular: Regular Rate, Regular Rhythm Abdomen: soft, no tenderness, no distension Extremities: no edema, other (left foot warm, well perfused with strong pulses. Pain with internal rotation of left ankle. ) Skin: warm, dry, intact Neurological: no new focal deficit Psy/Mental Status: alert, normal affect, normal mood - Problem List & Annotations (1) GI bleed SNOMED Code(s): 73696606 Code(s): K92.2 - GASTROINTESTINAL HEMORRHAGE, UNSPECIFIED Status: Acute Priority: High Current Visit: Yes Qualifiers: GI bleed type/associated pathology: unspecified gastrointestinal hemorrhage type Qualified Code(s): K92.2 - Gastrointestinal hemorrhage, unspecified (2) Acute left ankle pain SNOMED Code(s): 42087991081299 Code(s): M25.572 - PAIN IN LEFT ANKLE AND JOINTS OF LEFT FOOT Status: Acute Current Visit: Yes - Problem List Review Problem List Initiated/Reviewed/Updated: Yes - My Orders Last 24 Hours: My Active Orders 02/01/17 13:32 Head wo Cont [CT] Routine 02/02/17 08:55 Abdomen Ltd [US] Routine 02/02/17 08:56 Ankle 2V Lt [CR] Routine - Plan Plan:: -Diagnostic EGD this am. Will determine further plans based on findings. Per PCP , patient drinks more than he previously admitted to. Will get LUQ US to look for cirrhosis or fatty liver infiltration. -Left ankle pain: patient passed out and fell. Most likely sprained left ankle. Will get 2V left ankle to rule out fracture.
[2017-02-02] MEDS: Pantoprazole 80 MG in Sodium Chloride 0.9% 100 ML IV SCH ×2 (09:30→20:01)
--- NOTE | 2017-02-02 09:36 | PCM.OPNOTE ---
- General Post-Op/Procedure Note Date of Surgery/Procedure: 02/02/17 Operative Procedure(s): Diagnostic EGD Findings: Grade 2 esophageal varices. No evidence of bleeding. Mild gastritis and duodenitis. Pre Op Diagnosis: GI bleed Post-Op Diagnosis: Grade 2 esophageal varices. Gastritis and duodenitis. Anesthesia Technique: [facility] [place] Primary Surgeon: Sujatha Suh Pathology: Biopsy of antrum Condition: Fair Free Text/Narrative:: Intake & Output 02/01/17 02/02/17 02/02/17 22:59 06:59 14:59 Intake Total 462 1000 Output Total 800 2250 Balance -937 -5612
--- NOTE | 2017-02-02 09:57 | PCM.POSTAN ---
POST ANESTHESIA ASSESSMENT - MENTAL STATUS Mental Status: alert, oriented - VITAL SIGNS Pulse Rate: 93 SaO2: 100 Resp Rate: 16 Blood Pressure: 117/60 - RESPIRATORY Respiratory Status: respiratory rate WNL, airway patent, O2 saturation stable, supplemental oxygen - CARDIOVASCULAR CV Status: pulse rate WNL, blood pressure stable - GASTROINTESTINAL GI Status: no symptoms, other (BRB after procedure (small amount - expected).) - PAIN Pain Score: 0 - POST OP HYDRATION Hydration Status: adequate & stable - OBSERVATIONS Free Text/Narrative:: Responding to question and command. Remains iin ICU due to coagulopathy and presentation last night.
--- NOTE | 2017-02-02 11:57 | PCM.PN ---
- General Info Date of Service: 02/02/17 Admission Dx/Problem (Free Text): GI bleed Subjective Update: Patient had two bowel movements and one episode of vomiting last night. NG was pulled out incidentally. Patient feels well this morning. Denies nausea. Abdomen has no pain or distension. No acute events otherwise overnight. Complaining of left ankle pain this am. Functional Status: Reports: pain controlled - Review of Systems General: Reports: Weakness, Fatigue HEENT: Reports: no symptoms Pulmonary: Reports: no symptoms Cardiovascular: Reports: No Symptoms Gastrointestinal: Reports: Abdominal pain, Hematochezia, Melena Genitourinary: Reports: no symptoms Musculoskeletal: Reports: no symptoms Skin: Reports: no symptoms Neurological: Reports: No Symptoms Psychiatric: Reports: no symptoms - Patient Data Vitals - most recent: Last Vital Signs Temp 37.3 C 02/02/17 08:00 Pulse 101 H 02/02/17 11:00 Resp 19 02/02/17 11:00 BP 134/76 02/02/17 11:00 Pulse Ox 100 02/02/17 11:00 Weight - most recent: 113.398 kg I&O - last 24 hours: Intake & Output 02/01/17 02/02/17 02/02/17 22:59 06:59 14:59 Intake Total 462 1000 Output Total 800 2250 Balance -338 -1250 Lab Results last 24 hrs: Laboratory Results - last 24 hr 02/01/17 02/01/17 02/02/17 Range/Units 14:28 21:38 05:00 WBC 13.33 H 11.13 H (4.0-11.0) K/uL RBC 3.25 L 3.06 L (4.50-5.90) M/uL Hgb 9.9 L 9.3 L (13.0-17.0) g/dL Hct 29.3 L 27.7 L (38.0-50.0) % MCV 90.2 90.5 (80.0-98.0) fL MCH 30.5 30.4 (27.0-32.0) pg MCHC 33.8 33.6 (31.0-37.0) g/dL RDW Std Deviation 51.6 52.9 (28.0-62.0) fl RDW Coeff of [place] 16 H 17 H (11.0-15.0) % Plt Count 82 L 71 L (150-400) K/uL MPV 10.80 11.20 (7.40-12.00) fL Neut % (Auto) 71.5 75.9 (48.0-80.0) % Lymph % (Auto) 16.1 13.7 L (16.0-40.0) % [place] % (Auto) 12.2 10.2 (0.0-15.0) % Eos % (Auto) 0.2 0.1 (0.0-7.0) % Baso % (Auto) 0.0 0.1 (0.0-1.5) % Neut # (Auto) 9.5 H 8.5 H (1.4-5.7) K/uL Lymph # (Auto) 2.2 1.5 (0.6-2.4) K/uL [place] # (Auto) 1.6 H 1.1 H (0.0-0.8) K/uL Eos # (Auto) 0.0 0.0 (0.0-0.7) K/uL Baso # (Auto) 0.0 0.0 (0.0-0.1) K/uL Nucleated RBC % 0.0 0.0 /100WBC Nucleated RBCs # 0 0 K/uL Urine Color YELLOW Urine Appearance CLEAR Urine pH 6.0 (5.0-8.0) Ur Specific [place] 1.010 (1.001-1.035) Urine Protein NEGATIVE (NEGATIVE) mg/dL Urine Glucose (UA) NEGATIVE (NEGATIVE) mg/dL Urine Ketones NEGATIVE (NEGATIVE) mg/dL Urine Occult Blood NEGATIVE (NEGATIVE) Urine Nitrite NEGATIVE (NEGATIVE) Urine Bilirubin NEGATIVE (NEGATIVE) Urine Urobilinogen 0.2 (<2.0) EU/dL Ur Leukocyte Esterase NEGATIVE (NEGATIVE) Urine RBC 0-1 (0-2/HPF) Urine WBC 0-1 (0-5/HPF) Ur Epithelial Cells RARE (NONE-FEW) Urine Bacteria FEW (NEGATIVE) Hyaline Casts 0-2 (0-2/LPF) Urine Mucus LIGHT (NONE-MOD) Med Orders - Current: Current Medications Hydromorphone HCl (Dilaudid) 0.5 mg IVPUSH Q2H PRN PRN Reason: Pain (severe 7-10) Sodium Chloride (Normal Saline) 1,000 mls @ 175 mls/hr IV ASDIRECTED JANEE Last Admin: 02/02/17 10:09 Dose: 175 mls/hr Pantoprazole Sodium 80 mg/ (Sodium Chloride) 100 mls @ 10 mls/hr IV Q10H JANEE Last Admin: 02/02/17 09:30 Dose: 10 mls/hr Ondansetron HCl (Zofran) 4 mg IVPUSH Q6H JANEE Last Admin: 02/02/17 10:11 Dose: Not Given Sodium Chloride (Saline Flush) 10 ml FLUSH ASDIRECTED PRN PRN Reason: Keep Vein Open Sodium Chloride (Saline Flush) 2.5 ml FLUSH ASDIRECTED PRN PRN Reason: Keep Vein Open Discontinued Medications Diphenhydramine HCl (Benadryl) 25 mg IV ONETIME ONE Stop: 02/01/17 13:23 Last Admin: 02/01/17 14:33 Dose: 25 mg Fentanyl (Sublimaze) Confirm Administered Dose 100 mcg .ROUTE .STK-MED ONE Stop: 02/02/17 08:55 Last Admin: 02/02/17 11:01 Dose: Not Given Furosemide (Lasix) 20 mg IVPUSH ONETIME ONE Stop: 02/01/17 13:23 Last Admin: 02/01/17 14:33 Dose: 20 mg Sodium Chloride (Normal Saline) 1,000 mls @ 999 mls/hr IV STAT ONE Stop: 02/01/17 12:44 Last Admin: 02/01/17 12:02 Dose: 999 mls/hr Pantoprazole Sodium 80 mg/ (Sodium Chloride) 100 mls @ 10 mls/hr IV .Continuous JANEE Last Admin: 02/01/17 22:45 Dose: 10 mls/hr Propofol (Diprivan 50 Ml) Confirm Administered Dose 50 mls @ as directed .ROUTE .STK-MED ONE Stop: 02/02/17 08:56 Last Admin: 02/02/17 11:01 Dose: Not Given Midazolam HCl (Versed 1 Mg/Ml) Confirm Administered Dose 2 mg .ROUTE .STK-MED ONE Stop: 02/02/17 08:54 Last Admin: 02/02/17 11:01 Dose: Not Given Ondansetron HCl (Zofran) 4 mg IVPUSH STAT STA Stop: 02/01/17 12:52 Last Admin: 02/01/17 12:56 Dose: 4 mg Pantoprazole Sodium (Protonix Iv) 80 mg IVPUSH .BOLUS ONE Stop: 02/01/17 12:35 Last Admin: 02/01/17 12:45 Dose: 80 mg - Exam Quality Assessment: No: supplemental oxygen General: alert, oriented HEENT: Pupils equal, Pupils reactive Neck: supple Lungs: Clear to auscultation, Normal respiratory effort Cardiovascular: Regular Rate, Regular Rhythm Abdomen: bowel sounds present, soft, no tenderness, other (NG tube in place small volume blood in tube) Extremities: no edema Skin: warm, dry, intact Psy/Mental Status: alert, normal affect - Problem List & Annotations (1) GI bleed SNOMED Code(s): 85316386 Code(s): K92.2 - GASTROINTESTINAL HEMORRHAGE, UNSPECIFIED Status: Acute Priority: High Current Visit: Yes Qualifiers: GI bleed type/associated pathology: unspecified gastrointestinal hemorrhage type Qualified Code(s): K92.2 - Gastrointestinal hemorrhage, unspecified Annotation/Comment:: no active bleeding site per surgeon (2) Coagulopathy SNOMED Code(s): 16286564 Code(s): D68.9 - COAGULATION DEFECT, UNSPECIFIED Status: Chronic Priority : High Current Visit: Yes (3) Thrombocytopenia SNOMED Code(s): 035491245 Code(s): D69.6 - THROMBOCYTOPENIA, UNSPECIFIED Status: Chronic Current Visit: No (4) Anemia due to acute blood loss SNOMED Code(s): 836813268 Code(s): D62 - ACUTE POSTHEMORRHAGIC ANEMIA Status: Acute Priority: High Current Visit: Yes (5) Esophageal varices determined by endoscopy SNOMED Code(s): 40162034, 395184625 Code(s): I85.00 - ESOPHAGEAL VARICES WITHOUT BLEEDING Status: Acute Current Visit: Yes - Problem List Review Problem List Initiated/Reviewed/Updated: Yes - My Orders Last 24 Hours: My Active Orders 02/01/17 13:12 Up ad [place] [RC] ASDIRECTED Consult to Physician [CONS] Routine HYDROmorphone [Dilaudid] 0.5 mg IVPUSH Q2H PRN VTE Pharmacological Contraindications [AST] Per Unit Routine Resuscitation Status Routine 02/01/17 13:13 Patient Status [ADT] Routine Oxygen Therapy [RC] PRN Vital Signs [RC] Q1H 02/01/17 13:15 Ondansetron [Zofran] 4 mg IVPUSH Q6H Sodium Chloride 0.9% [Normal Saline] 1,000 ml IV ASDIRECTED 02/01/17 13:19 Notify Provider Consults [RC] ASDIRECTED 02/01/17 13:22 Transfuse PRBC [Transfuse Red Blood Cells] [COMM] Urgent 02/01/17 Dinner Nothing per Oral Now Diet [DIET] - Plan Plan:: -Diagnostic EGD this am. Will determine further plans based on findings. Per PCP , patient drinks more than he previously admitted to. Will get LUQ US to look for cirrhosis or fatty liver infiltration. -Left ankle pain: patient passed out and fell. Most likely sprained left ankle. Will get 2V left ankle to rule out fracture. Feb 02, 2017: The patient is a 46-year-old gentleman who had just undergone EGD secondary to upper GI bleed. Surgeon had reported that the patient has grade 2 esophageal varices. I have ordered an ultrasound of the patient's right upper quadrant to ascertain hepatic damage likely secondary to alcohol. The patient reports that he has been drinking considerably more alcohol than usual. The surgeon says that the bleeding site was not located and that it was not from the varices. For now the patient will be kept in the intensive care unit with close monitoring, NG tube to low intermittent suction, as well as IV Protonix. The patient likely will be downgraded to med telemetry tomorrow. The patient's hemoglobin and hematocrit will be monitored very closely. Patient also has rather significant thrombocytopenia which is likely secondary to his alcohol consumption as well. Patient's thrombocytes are currently at 74,000. I have ordered a CBC, conference of metabolic panel, INR for the morning. The patient is to continue n.p.o. for now. We'll start feeding the patient has NG tube removed.
--- NOTE | 2017-02-02 14:01 | OR ---
SURGEON: RICH CANTRELL MD DATE OF PROCEDURE: 02/02/2017 PREOPERATIVE DIAGNOSIS: Gastrointestinal bleed. POSTOPERATIVE DIAGNOSES: 1. Grade 2 esophageal varices. 2. Gastritis and duodenitis. PROCEDURE PERFORMED: Diagnostic esophagogastroduodenoscopy with biopsy. ANESTHESIA: MAC. INSTRUMENT USED: Olympus endoscope. EXTENT OF THE EXAM: Second portion of duodenum. PREPARATION: Good. LIMITATIONS: None. INDICATIONS FOR EXAMINATION: The patient is a 46-year-old male, who presents with acute GI bleed associated with syncope. The patient was admitted to the ICU and resuscitated. The patient was vitally stable overnight and has had no further evidence of ongoing bleeding. A decision was made to perform a diagnostic EGD to look for a source of this bleed. The patient and I discussed the procedure as well as expected perioperative course. We discussed the risks, including bleeding or perforation. The patient verbalized understanding and wished to proceed. PROCEDURE IN DETAIL: The patient was met in the ICU. He remained in his ICU bed, but the bed was positioned in the beach chair position. A time-out was completed verifying the patient's name, age, date of , allergies, and procedure to be performed. A bite block was placed in the patient's mouth. Monitored anesthesia care was induced and oxygen was provided via nasal cannula throughout the procedure. After adequate sedation was achieved, a well lubricated endoscope was placed over the patient's tongue and guided under direct visualization to the level of the second portion of the duodenum. The second portion of the duodenum appeared normal and a photograph was taken. There was no evidence of old blood or ulceration within this portion of the intestine. The scope was then withdrawn back into the first portion of the duodenum. There was mild duodenitis, but again no ulceration present. The scope was then brought into the stomach and a photograph was taken of the pylorus as well as the esophageal hiatus. Both of these appeared normal. The gastric mucosa was inspected and found to be mildly erythematous. The patient is slightly coagulopathic, so one biopsy was taken of the antrum and sent for H. pylori testing. The scope was then brought into the esophagus and grade 2 esophageal varices were noted within the distal aspect of the esophagus. These were carefully inspected, but there was no evidence of ulceration or recent bleeding. The remainder of the esophagus appeared normal. The scope was then removed from the patient and the procedure was terminated. An NG was placed at the end of the procedure as his previous NG had been inadvertently pulled overnight. The patient tolerated the procedure well and was monitored in the ICU afterwards. ENDOSCOPIC DIAGNOSES: Grade 2 esophageal varices, mild gastritis and duodenitis. RECOMMENDATIONS: Continue monitoring in the ICU, n.p.o., IV PPI drip. If within the next 6-12 hours the patient has no NG output, recommend removing and starting a clear liquid diet. ODETTE ROSADO /[id number] [id number]
[2017-02-02] MEDS ORDERED: LORazepam 2 MG/ML MDV IVPUSH PRN (14:08)
[2017-02-02] MEDS: HYDROmorphone 2 MG/ML Syringe IVPUSH PRN (19:33)
[2017-02-03] MEDS: Ondansetron 4 MG/2 ML SDV IVPUSH SCH ×4 (02:01→19:19)
[2017-02-03] MEDS: HYDROmorphone 2 MG/ML Syringe IVPUSH PRN ×2 (02:01→20:25)
[2017-02-03] MEDS: Sodium Chloride 0.9% 1,000 ML IV SCH (04:54)
[2017-02-03 05:29] LABS: CHLORIDE,CL 115 mmol/L (98-110); SODIUM,NA 138 mmol/L (136-146)
[2017-02-03] MEDS: Pantoprazole 80 MG in Sodium Chloride 0.9% 100 ML IV SCH ×2 (06:29→16:32)
[2017-02-03] MEDS ORDERED: Magnesium Sulfate/Water 2 GM in Premix Bag 1 BAG IV ONE (07:16)
[2017-02-03] MEDS ORDERED: Iopamidol 755 Mg/ML 100 ML Bottle IVPUSH STA (07:52)
--- NOTE | 2017-02-03 09:09 | PCM48HPAN ---
Post Anesthesia Note - EVALUATION WITHIN 48HRS OF ANESTHETIC Vital Signs in Normal Range: Yes Patient Participated in Evaluation: Yes Respiratory Function Stable: Yes Airway Patent: Yes Cardiovascular Function Stable: Yes Hydration Status Stable: Yes Pain Control Satisfactory: Yes Nausea and Vomiting Control Satisfactory: Yes Mental Status Recovered: Yes - COMMENTS/OBSERVATIONS Free Text/Narrative:: VSS stable overnight, HgB continues to decline, 9.3 yesterday, today 7.5. Increasing thrombocytopenia. It may be beneficial to have Platelet pack's on hand should labs continue to decline.
--- NOTE | 2017-02-03 09:25 | PCM.PN ---
- General Info Date of Service: 02/03/17 Admission Dx/Problem (Free Text): GI bleed Subjective Update: NG with nothing out after endoscopy. NG pulled and patients diet advanced to clears. Tolerated well. No nausea, vomiting, or BM last evening or this morning. Hgb dropped this am to 7.5. CLinically patient feels well and vitals are stable. Left ankle xray appears normal. Ankle more swollen this am. Patient having difficulty walking on it. - Review of Systems General: Reports: No Symptoms Pulmonary: Reports: no symptoms Cardiovascular: Reports: No Symptoms Gastrointestinal: Reports: No symptoms Genitourinary: Reports: no symptoms Musculoskeletal: Reports: foot pain Skin: Reports: no symptoms - Patient Data Vitals - most recent: Last Vital Signs Temp 37.3 C 02/03/17 08:00 Pulse 97 02/03/17 08:00 Resp 12 02/03/17 08:00 BP 149/96 H 02/03/17 08:00 Pulse Ox 97 02/03/17 08:00 Weight - most recent: 121.5 kg I&O - last 24 hours: Intake & Output 02/02/17 02/03/17 02/03/17 22:59 06:59 14:59 Intake Total 3320 3500 Output Total 1150 320 Balance 2170 3180 Lab Results last 24 hrs: Laboratory Results - last 24 hr 02/03/17 02/03/17 02/03/17 Range/Units 04:55 04:55 04:55 WBC 6.85 (4.0-11.0) K/uL RBC 2.43 L (4.50-5.90) M/uL Hgb 7.5 L (13.0-17.0) g/dL Hct 22.4 L (38.0-50.0) % MCV 92.2 (80.0-98.0) fL MCH 30.9 (27.0-32.0) pg MCHC 33.5 (31.0-37.0) g/dL RDW Std Deviation 57.1 (28.0-62.0) fl RDW Coeff of [place] 18 H (11.0-15.0) % Plt Count 52 L (150-400) K/uL MPV 10.40 (7.40-12.00) fL Neut % (Auto) 63.4 (48.0-80.0) % Lymph % (Auto) 19.0 (16.0-40.0) % [place] % (Auto) 17.1 H (0.0-15.0) % Eos % (Auto) 0.4 (0.0-7.0) % Baso % (Auto) 0.1 (0.0-1.5) % Neut # (Auto) 4.3 (1.4-5.7) K/uL Lymph # (Auto) 1.3 (0.6-2.4) K/uL [place] # (Auto) 1.2 H (0.0-0.8) K/uL Eos # (Auto) 0.0 (0.0-0.7) K/uL Baso # (Auto) 0.0 (0.0-0.1) K/uL Nucleated RBC % 0.3 /100WBC Nucleated RBCs # 0 K/uL INR 1.38 H (0.86-1.11) Sodium 138 (136-146) mmol/L Potassium 3.7 (3.5-5.1) mmol/L Chloride 115 H (98-110) mmol/L Carbon Dioxide 18 L (21-31) mmol/L BUN 16 (6.0-23.0) mg/dL Creatinine 0.6 (0.6-1.5) mg/dL Est Cr Clr Drug Dosing 151.69 mL/min Estimated GFR (MDRD) > 60.0 ml/min Glucose 92 (60-110) mg/dL Calcium 7.3 L (8.8-10.8) mg/dL Phosphorus 3.8 (2.4-4.7) mg/dL Magnesium 1.5 (1.5-2.3) mEq/L Total Bilirubin 1.6 H (0.1-1.5) mg/dL AST 35 (5-40) IU/L ALT 28 (8-54) IU/L Alkaline Phosphatase 42 (40-150) Total Protein 4.4 L (6.0-8.0) g/dL Albumin 2.5 L (3.5-5.0) g/dL Globulin 1.9 L (2.0-3.5) g/dL Albumin/Globulin Ratio 1.3 (1.3-2.8) Med Orders - Current: Current Medications Hydromorphone HCl (Dilaudid) 0.5 mg IVPUSH Q2H PRN PRN Reason: Pain (severe 7-10) Last Admin: 02/03/17 02:01 Dose: 0.5 mg Sodium Chloride (Normal Saline) 1,000 mls @ 175 mls/hr IV ASDIRECTED JANEE Last Admin: 02/03/17 04:54 Dose: 175 mls/hr Pantoprazole Sodium 80 mg/ (Sodium Chloride) 100 mls @ 10 mls/hr IV Q10H JANEE Last Admin: 02/03/17 06:29 Dose: 10 mls/hr Lorazepam (Ativan) 0 mg IVPUSH Q4H PRN; Protocol PRN Reason: CIWAA Ondansetron HCl (Zofran) 4 mg IVPUSH Q6H JANEE Last Admin: 02/03/17 06:28 Dose: 4 mg Sodium Chloride (Saline Flush) 10 ml FLUSH ASDIRECTED PRN PRN Reason: Keep Vein Open Sodium Chloride (Saline Flush) 2.5 ml FLUSH ASDIRECTED PRN PRN Reason: Keep Vein Open Discontinued Medications Diphenhydramine HCl (Benadryl) 25 mg IV ONETIME ONE Stop: 02/01/17 13:23 Last Admin: 02/01/17 14:33 Dose: 25 mg Fentanyl (Sublimaze) Confirm Administered Dose 100 mcg .ROUTE .STK-MED ONE Stop: 02/02/17 08:55 Last Admin: 02/02/17 11:01 Dose: Not Given Furosemide (Lasix) 20 mg IVPUSH ONETIME ONE Stop: 02/01/17 13:23 Last Admin: 02/01/17 14:33 Dose: 20 mg Sodium Chloride (Normal Saline) 1,000 mls @ 999 mls/hr IV STAT ONE Stop: 02/01/17 12:44 Last Admin: 02/01/17 12:02 Dose: 999 mls/hr Pantoprazole Sodium 80 mg/ (Sodium Chloride) 100 mls @ 10 mls/hr IV .Continuous JANEE Last Admin: 02/01/17 22:45 Dose: 10 mls/hr Propofol (Diprivan 50 Ml) Confirm Administered Dose 50 mls @ as directed .ROUTE .STK-MED ONE Stop: 02/02/17 08:56 Last Admin: 02/02/17 11:01 Dose: Not Given Magnesium Sulfate 2 gm/ Premix 50 mls @ 50 mls/hr IV ONETIME ONE Stop: 02/03/17 08:15 Last Admin: 02/03/17 07:34 Dose: 50 mls/hr Iopamidol (Isovue-370 (76%)) 100 ml IVPUSH ONETIME STA Stop: 02/03/17 07:53 Last Admin: 02/03/17 07:55 Dose: 100 ml Midazolam HCl (Versed 1 Mg/Ml) Confirm Administered Dose 2 mg .ROUTE .STK-MED ONE Stop: 02/02/17 08:54 Last Admin: 02/02/17 11:01 Dose: Not Given Ondansetron HCl (Zofran) 4 mg IVPUSH STAT STA Stop: 02/01/17 12:52 Last Admin: 02/01/17 12:56 Dose: 4 mg Pantoprazole Sodium (Protonix Iv) 80 mg IVPUSH .BOLUS ONE Stop: 02/01/17 12:35 Last Admin: 02/01/17 12:45 Dose: 80 mg - Exam General: alert, oriented, cooperative, no acute distress HEENT: Pupils equal, Pupils reactive Neck: supple Lungs: Clear to auscultation, Normal respiratory effort Cardiovascular: Regular Rate, Regular Rhythm Abdomen: bowel sounds present, soft, no tenderness, distension Extremities: no edema Skin: warm, dry, intact Neurological: no new focal deficit Psy/Mental Status: alert, normal affect, normal mood - Problem List & Annotations (1) GI bleed SNOMED Code(s): 27621986 Code(s): K92.2 - GASTROINTESTINAL HEMORRHAGE, UNSPECIFIED Status: Acute Priority: High Current Visit: Yes Qualifiers: GI bleed type/associated pathology: unspecified gastrointestinal hemorrhage type Qualified Code(s): K92.2 - Gastrointestinal hemorrhage, unspecified Annotation/Comment:: no active bleeding site per surgeon (2) Acute left ankle pain SNOMED Code(s): 82151306747799 Code(s): M25.572 - PAIN IN LEFT ANKLE AND JOINTS OF LEFT FOOT Status: Acute Current Visit: Yes - Problem List Review Problem List Initiated/Reviewed/Updated: Yes - My Orders Last 24 Hours: My Active Orders 02/02/17 08:55 Abdomen Ltd [US] Routine 02/02/17 08:56 Ankle 2V Lt [CR] Routine 02/02/17 09:07 Verify Patient Consent Obtain [RC] ASDIRECTED 02/02/17 15:46 Nasogastric Orogastric Tube Removal [OM.PC] Routine 02/02/17 Dinner Clear Liquid Diet [DIET] 02/03/17 08:59 HEMOGLOBIN [HEME] Routine - Plan Plan:: -Neurologically intact. Denies syncope. Pain in ankle is patients main complaint. Most likely a sprain from the fall. Recommend Ice, elevation, compression and rest. May need PT to work with patient if he has difficulty walking. Ortho as outpatient if pain persists. 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 CT this morning shows ascites, spelnomegally, liver cirrhosis. US showed a 3 cm hypoechoic mass which maybe a pancreatic pseudocyst. This can be worked up further with MRI of abdomen as an outpatient. Pancreatic enzymes normal. EGD showed grade 2 esophageal varices with no stigmata of recent bleeding. Patient's hemoglobin dropped this am. Recommend repeat hgb draw this morning as patient appears clinically stable. Feel this could be dilutional as patient is drinking lots of fluid and has IVF going at a significant rate. I also took a biopsy of the antrum yesterday and the patient had some blood loss from this. Would hold off on any blood transfusions as long as his hgb is >7, vitals are stable and he is not showing signs of active bleeding. Recommend recheck of hemoglobin again today at some point (this evening) to demonstrate that it is stable. Escalate cares however if he is showing signs of active bleeding. -Ok with patient having diet advanced as long as he is stable and showing no clinical signs of bleed.
[2017-02-03] MEDS ORDERED: Furosemide 20 MG/2 ML VIAL IVPUSH ONE (10:07)
--- NOTE | 2017-02-03 12:20 | PCM.PN ---
- General Info Date of Service: 02/03/17 Functional Status: Reports: pain controlled (L ankle still very sore but able to sleep and even hobble to bathroom) - Review of Systems General: Reports: No Symptoms HEENT: Reports: no symptoms Pulmonary: Reports: no symptoms Cardiovascular: Reports: No Symptoms Gastrointestinal: Reports: No symptoms Genitourinary: Reports: no symptoms Neurological: Reports: No Symptoms - Patient Data Vitals - most recent: Last Vital Signs Temp 37.3 C 02/03/17 08:00 Pulse 103 H 02/03/17 12:00 Resp 10 L 02/03/17 12:00 BP 126/90 02/03/17 12:00 Pulse Ox 100 02/03/17 12:00 Weight - most recent: 121.5 kg I&O - last 24 hours: Intake & Output 02/02/17 02/03/17 02/03/17 22:59 06:59 14:59 Intake Total 3320 3500 Output Total 1150 320 Balance 2170 3180 Lab Results last 24 hrs: Laboratory Results - last 24 hr 02/03/17 02/03/17 02/03/17 Range/Units 04:55 04:55 04:55 WBC 6.85 (4.0-11.0) K/uL RBC 2.43 L (4.50-5.90) M/uL Hgb 7.5 L (13.0-17.0) g/dL Hct 22.4 L (38.0-50.0) % MCV 92.2 (80.0-98.0) fL MCH 30.9 (27.0-32.0) pg MCHC 33.5 (31.0-37.0) g/dL RDW Std Deviation 57.1 (28.0-62.0) fl RDW Coeff of [place] 18 H (11.0-15.0) % Plt Count 52 L (150-400) K/uL MPV 10.40 (7.40-12.00) fL Neut % (Auto) 63.4 (48.0-80.0) % Lymph % (Auto) 19.0 (16.0-40.0) % [place] % (Auto) 17.1 H (0.0-15.0) % Eos % (Auto) 0.4 (0.0-7.0) % Baso % (Auto) 0.1 (0.0-1.5) % Neut # (Auto) 4.3 (1.4-5.7) K/uL Lymph # (Auto) 1.3 (0.6-2.4) K/uL [place] # (Auto) 1.2 H (0.0-0.8) K/uL Eos # (Auto) 0.0 (0.0-0.7) K/uL Baso # (Auto) 0.0 (0.0-0.1) K/uL Nucleated RBC % 0.3 /100WBC Nucleated RBCs # 0 K/uL INR 1.38 H (0.86-1.11) Sodium 138 (136-146) mmol/L Potassium 3.7 (3.5-5.1) mmol/L Chloride 115 H (98-110) mmol/L Carbon Dioxide 18 L (21-31) mmol/L BUN 16 (6.0-23.0) mg/dL Creatinine 0.6 (0.6-1.5) mg/dL Est Cr Clr Drug Dosing 151.69 mL/min Estimated GFR (MDRD) > 60.0 ml/min Glucose 92 (60-110) mg/dL Calcium 7.3 L (8.8-10.8) mg/dL Phosphorus 3.8 (2.4-4.7) mg/dL Magnesium 1.5 (1.5-2.3) mEq/L Total Bilirubin 1.6 H (0.1-1.5) mg/dL AST 35 (5-40) IU/L ALT 28 (8-54) IU/L Alkaline Phosphatase 42 (40-150) Total Protein 4.4 L (6.0-8.0) g/dL Albumin 2.5 L (3.5-5.0) g/dL Globulin 1.9 L (2.0-3.5) g/dL Albumin/Globulin Ratio 1.3 (1.3-2.8) 02/03/17 Range/Units 09:25 WBC (4.0-11.0) K/uL RBC (4.50-5.90) M/uL Hgb 8.1 L (13.0-17.0) g/dL Hct (38.0-50.0) % MCV (80.0-98.0) fL MCH (27.0-32.0) pg MCHC (31.0-37.0) g/dL RDW Std Deviation (28.0-62.0) fl RDW Coeff of [place] (11.0-15.0) % Plt Count (150-400) K/uL MPV (7.40-12.00) fL Neut % (Auto) (48.0-80.0) % Lymph % (Auto) (16.0-40.0) % [place] % (Auto) (0.0-15.0) % Eos % (Auto) (0.0-7.0) % Baso % (Auto) (0.0-1.5) % Neut # (Auto) (1.4-5.7) K/uL Lymph # (Auto) (0.6-2.4) K/uL [place] # (Auto) (0.0-0.8) K/uL Eos # (Auto) (0.0-0.7) K/uL Baso # (Auto) (0.0-0.1) K/uL Nucleated RBC % /100WBC Nucleated RBCs # K/uL INR (0.86-1.11) Sodium (136-146) mmol/L Potassium (3.5-5.1) mmol/L Chloride (98-110) mmol/L Carbon Dioxide (21-31) mmol/L BUN (6.0-23.0) mg/dL Creatinine (0.6-1.5) mg/dL Est Cr Clr Drug Dosing mL/min Estimated GFR (MDRD) ml/min Glucose (60-110) mg/dL Calcium (8.8-10.8) mg/dL Phosphorus (2.4-4.7) mg/dL Magnesium (1.5-2.3) mEq/L Total Bilirubin (0.1-1.5) mg/dL AST (5-40) IU/L ALT (8-54) IU/L Alkaline Phosphatase (40-150) Total Protein (6.0-8.0) g/dL Albumin (3.5-5.0) g/dL Globulin (2.0-3.5) g/dL Albumin/Globulin Ratio (1.3-2.8) Med Orders - Current: Current Medications Hydromorphone HCl (Dilaudid) 0.5 mg IVPUSH Q2H PRN PRN Reason: Pain (severe 7-10) Last Admin: 02/03/17 02:01 Dose: 0.5 mg Pantoprazole Sodium 80 mg/ (Sodium Chloride) 100 mls @ 10 mls/hr IV Q10H JANEE Last Admin: 02/03/17 06:29 Dose: 10 mls/hr Lorazepam (Ativan) 0 mg IVPUSH Q4H PRN; Protocol PRN Reason: CIWAA Ondansetron HCl (Zofran) 4 mg IVPUSH Q6H JANEE Last Admin: 02/03/17 06:28 Dose: 4 mg Sodium Chloride (Saline Flush) 10 ml FLUSH ASDIRECTED PRN PRN Reason: Keep Vein Open Sodium Chloride (Saline Flush) 2.5 ml FLUSH ASDIRECTED PRN PRN Reason: Keep Vein Open Discontinued Medications Diphenhydramine HCl (Benadryl) 25 mg IV ONETIME ONE Stop: 02/01/17 13:23 Last Admin: 02/01/17 14:33 Dose: 25 mg Fentanyl (Sublimaze) Confirm Administered Dose 100 mcg .ROUTE .STK-MED ONE Stop: 02/02/17 08:55 Last Admin: 02/02/17 11:01 Dose: Not Given Furosemide (Lasix) 20 mg IVPUSH ONETIME ONE Stop: 02/01/17 13:23 Last Admin: 02/01/17 14:33 Dose: 20 mg Furosemide (Lasix) 20 mg IVPUSH ONETIME ONE Stop: 02/03/17 10:08 Last Admin: 02/03/17 10:22 Dose: 20 mg Sodium Chloride (Normal Saline) 1,000 mls @ 999 mls/hr IV STAT ONE Stop: 02/01/17 12:44 Last Admin: 02/01/17 12:02 Dose: 999 mls/hr Pantoprazole Sodium 80 mg/ (Sodium Chloride) 100 mls @ 10 mls/hr IV .Continuous JANEE Last Admin: 02/01/17 22:45 Dose: 10 mls/hr Sodium Chloride (Normal Saline) 1,000 mls @ 175 mls/hr IV ASDIRECTED JANEE Last Admin: 02/03/17 04:54 Dose: 175 mls/hr Propofol (Diprivan 50 Ml) Confirm Administered Dose 50 mls @ as directed .ROUTE .STK-MED ONE Stop: 02/02/17 08:56 Last Admin: 02/02/17 11:01 Dose: Not Given Magnesium Sulfate 2 gm/ Premix 50 mls @ 50 mls/hr IV ONETIME ONE Stop: 02/03/17 08:15 Last Admin: 02/03/17 07:34 Dose: 50 mls/hr Iopamidol (Isovue-370 (76%)) 100 ml IVPUSH ONETIME STA Stop: 02/03/17 07:53 Last Admin: 02/03/17 07:55 Dose: 100 ml Midazolam HCl (Versed 1 Mg/Ml) Confirm Administered Dose 2 mg .ROUTE .STK-MED ONE Stop: 02/02/17 08:54 Last Admin: 02/02/17 11:01 Dose: Not Given Ondansetron HCl (Zofran) 4 mg IVPUSH STAT STA Stop: 02/01/17 12:52 Last Admin: 02/01/17 12:56 Dose: 4 mg Pantoprazole Sodium (Protonix Iv) 80 mg IVPUSH .BOLUS ONE Stop: 02/01/17 12:35 Last Admin: 02/01/17 12:45 Dose: 80 mg - Exam General: alert Lungs: Clear to auscultation Cardiovascular: Regular Rate Abdomen: bowel sounds present (Male) Exam: Deferred Extremities: No: no tenderness/swelling (L ankle i TRISTON wrap, visibly swollen, quite tender over lateral malleolus) - Problem List Review Problem List Initiated/Reviewed/Updated: Yes - My Orders Last 24 Hours: My Active Orders 02/03/17 Lunch Regular Diet [DIET] - Assessment Assessment:: Hemoglobin reported as 7.5 this am vs 11g last year. Rpeat 8.1. I&O markedly positive, will decrease ivs and diurese - Plan Plan:: -Neurologically intact. Denies syncope. Pain in ankle is patients main complaint. Most likely a sprain from the fall. Recommend Ice, elevation, compression and rest. May need PT to work with patient if he has difficulty walking. Ortho as outpatient if pain persists. 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 CT this morning shows ascites, spelnomegally, liver cirrhosis. US showed a 3 cm hypoechoic mass which maybe a pancreatic pseudocyst. This can be worked up further with MRI of abdomen as an outpatient. Pancreatic enzymes normal. EGD showed grade 2 esophageal varices with no stigmata of recent bleeding. Patient's hemoglobin dropped this am. Recommend repeat hgb draw this morning as patient appears clinically stable. Feel this could be dilutional as patient is drinking lots of fluid and has IVF going at a significant rate. I also took a biopsy of the antrum yesterday and the patient had some blood loss from this. Would hold off on any blood transfusions as long as his hgb is >7, vitals are stable and he is not showing signs of active bleeding. Recommend recheck of hemoglobin again today at some point (this evening) to demonstrate that it is stable. Escalate cares however if he is showing signs of active bleeding. -Ok with patient having diet advanced as long as he is stable and showing no clinical signs of bleed.
--- NOTE | 2017-02-03 16:48 | CR ---
EXAM DATE: 02/01/17 PATIENT'S AGE: 46 Patient: LINSEY VALENCIA Facility: [place], [place] Site . Site : 1970 Study: XRay Chest [id number]/28/2017 12:58:27 PM Ordering Physician: Nitin Gonzalez Final Report: CHEST 1 VIEW AP INDICATION: Chest pain, shortness of breath COMPARISON: 01/26/2017 FINDINGS: Normal heart size and vascular pattern. Lungs are clear of focal opacities. No pneumothorax or pleural abnormality. Interval placement of nasogastric tube, distal portion likely in the proximal stomach. IMPRESSION: 1. No acute abnormality. Interval placement of nasogastric tube. Dictated by Duane Eastman MD @ 02/01/2017 1:08:29 PM Dictated by: Duane Eastman MD @ 02/01/2017 13:08:36 (Electronic Signature) Report Signed by Proxy. [facility]
--- NOTE | 2017-02-03 16:58 | CT ---
EXAM DATE: 02/01/17 PATIENT'S AGE: 46 Patient: LINSEY VALENCIA Facility: [place], [place] Site . Site : 1970 Study: CT Head [id number]/28/2017 2:21:38 PM Ordering Physician: Ghazala Ho Final Report: INDICATION : Loss of consciousness. TECHNIQUE : Noncontrast CT scan of brain. Please note that all CT scans at this facility use dose modulation, iterative reconstruction and/or weight-based dosing when appropriate to reduce radiation dose to as low as reasonably achievable(ALARA). COMPARISON: None. 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 Nasogastric tube present. Calvarium grossly intact. No acute intra or extra-axial hemorrhage. The ventricles and sulci are normal size, shape and configuration. No visualized intracranial mass or additional abnormal attenuation. Bony calvarium is intact. Minimal mucosal thickening involving the ethmoid and posterior maxillary sinuses. Mastoid air cells clear. Rightward deviation of the nasal septum. IMPRESSION : 1. No acute intracranial abnormality, mass effect, or hemorrhage. Dictated by Duane Eastman MD @ 02/01/2017 2:36:02 PM Dictated by: Duane Eastman MD @ 02/01/2017 14:36:19 (Electronic Signature) Report Signed by Proxy. [facility]
--- NOTE | 2017-02-03 17:56 | CR ---
EXAM DATE: 02/01/17 PATIENT'S AGE: 46 Patient: LINSEY VALENCIA Facility: [place], [place] Site . Site : 1970 Study: XRay Extremity Left [id number]/29/2017 9:43:25 AM Ordering Physician: Ghazala Ho Final Report: CLINICAL INDICATION: Pain. Recent fall. Findings: There is no fracture or dislocation. The ankle mortise is symmetric. There is mild spurring of the posterior and plantar aspects of the calcaneus. No other bone or joint abnormality is identified. Impression: Normal appearing ankle. Mild calcaneal spurring. Dictated by Trav Schaffer MD @ Feb 02 2017 10:11AM (Electronic Signature) Report Signed by Proxy. [facility]
--- NOTE | 2017-02-03 17:59 | US ---
EXAM DATE: 02/01/17 PATIENT'S AGE: 46 Patient: LINSEY VALENCIA Facility: [place], [place] Site . Site : 1970 Study: US Abdomen [id number]/29/2017 11:25:01 AM Ordering Physician: Ghazala Ho Final Report: INDICATION: History of GI bleed. Evaluate liver. Technique: Abdominal ultrasound limited to the right upper quadrant. Findings: The liver is normal in size and displays changes of diffuse fatty infiltration. There are no focal abnormalities within the liver. There is no dilatation of the biliary system. The common bile duct measures 3 mm. The gallbladder is normal. 3 cm hypoechoic mass in the body of the pancreas. The right kidney measures 11.3 cm in length. No hydronephrosis. No free fluid in the right upper quadrant. Impression: 1. Mild diffuse fatty infiltration of the liver. 2. 3 cm hypoechoic mass in the body of the pancreas. Dictated by Heavenly Tena MD @ Feb 02 2017 11:28AM (Electronic Signature) Report Signed by Proxy. [facility]
--- NOTE | 2017-02-03 18:58 | CT ---
EXAM DATE: 02/01/17 PATIENT'S AGE: 46 Patient: LINSEY VALENCIA Facility: [place], [place] Site . Site : 1970 Study: CT Abdomen/Pelvis Angio [id number]/30/2017 8:48:23 AM Ordering Physician: Ghazala Ho Final Report: HISTORY: Hemoptysis. TECHNIQUE: Intravenous contrast enhanced CT of the abdomen and pelvis. Images were obtained in the arterial phase. COMPARISON: No prior CT available for comparison at time interpretation. FINDINGS: There is no abdominal aortic aneurysm or dissection. Celiac axis, SMA and ISA are patent. Renal arteries are patent. Common, external and internal iliac arteries are patent. . The liver has a non smooth contour which may indicate the presence of cirrhosis. No focal hepatic mass is seen. There is no biliary ductal dilatation. Gallbladder does not appear overly distended. Splenomegaly. No pancreatic mass or pancreatic ductal dilatation. There is a small amount of peripancreatic fluid. No well-defined pseudocyst. Symmetric nephrograms. No renal mass or hydronephrosis. No obstructive urinary calculus. . No small bowel obstruction. No appendicitis. Mild diverticulosis without acute diverticulitis. . Small volume abdominal and pelvic ascites. No localized collection. No free intraperitoneal air. No technically enlarged lymph nodes. Small fat containing inguinal hernias bilaterally. . Mild degenerate changes of the hips and within the spine. . Platelike atelectasis within the right lower lobe. IMPRESSION: 1. No abdominal aortic aneurysm or dissection. The mesenteric and renal vasculature is patent. 2. Non smooth liver contour which may indicate the presence of cirrhosis. 3. Splenomegaly and small volume abdominal and pelvic ascites may relate to portal hypertension. 4. There is a small amount of peripancreatic fluid which should be correlated with pancreatic enzymes to exclude pancreatitis. There is no pancreatic pseudocyst, pancreatic ductal dilatation or mass. 5. Diverticulosis without diverticulitis. 6. Platelike atelectasis within the right lower lobe. Dictated by Kun Banks MD @ 02/03/2017 8:59:32 AM Dictated by: Kun Banks MD @ 02/03/2017 08:59:57 (Electronic Signature) Report Signed by Proxy. [facility]
[2017-02-04] MEDS: Ondansetron 4 MG/2 ML SDV IVPUSH SCH ×2 (01:58→06:45)
[2017-02-04] MEDS: Pantoprazole 80 MG in Sodium Chloride 0.9% 100 ML IV SCH (01:59)
[2017-02-04] MEDS: HYDROmorphone 2 MG/ML Syringe IVPUSH PRN ×2 (03:41→08:05)
[2017-02-04 07:31] LABS: CHLORIDE,CL 109 mmol/L (98-110); SODIUM,NA 133 mmol/L (136-146)
--- NOTE | 2017-02-04 08:31 | PCM.PN ---
- General Info Date of Service: 02/04/17 Admission Dx/Problem (Free Text): GI bleed Subjective Update: No acute events over last 24 hours. Patient c/o left ankle pain and sweeling. Improving but difficult to walk on his left foot. Denies nausea, vomiting, black tarry stools, lightheadedness, or syncope. Started regular diet yesterday with no issues. Functional Status: Reports: tolerating diet, urinating - Review of Systems General: Reports: No Symptoms HEENT: Reports: no symptoms Pulmonary: Reports: no symptoms Cardiovascular: Reports: No Symptoms Gastrointestinal: Reports: No symptoms Genitourinary: Reports: no symptoms Musculoskeletal: Reports: foot pain - Patient Data Vitals - most recent: Last Vital Signs Temp 37.4 C 02/04/17 04:00 Pulse 96 02/03/17 21:00 Resp 11 L 02/04/17 07:00 BP 126/75 02/04/17 07:00 Pulse Ox 96 02/04/17 07:00 Weight - most recent: 122.3 kg I&O - last 24 hours: Intake & Output 02/03/17 02/04/17 02/04/17 22:59 06:59 14:59 Intake Total 3150 1900 Output Total 2600 1280 Balance 550 620 Lab Results last 24 hrs: Laboratory Results - last 24 hr 02/03/17 02/04/17 02/04/17 Range/Units 09:25 06:56 06:56 WBC 5.74 (4.0-11.0) K/uL RBC 2.47 L (4.50-5.90) M/uL Hgb 8.1 L 7.8 L (13.0-17.0) g/dL Hct 22.7 L (38.0-50.0) % MCV 91.9 (80.0-98.0) fL MCH 31.6 (27.0-32.0) pg MCHC 34.4 (31.0-37.0) g/dL RDW Std Deviation 55.3 (28.0-62.0) fl RDW Coeff of [place] 17 H (11.0-15.0) % Plt Count 56 L (150-400) K/uL MPV 10.80 (7.40-12.00) fL Add Manual Diff YES Neutrophils % (Manual) 64 (48.0-80.0) % Band Neutrophils % 2 % Lymphocytes % (Manual) 22 (16.0-40.0) % Monocytes % (Manual) 9 (0.0-15.0) % Eosinophils % (Manual) 2 (0.0-7.0) % Basophils % (Manual) 1 (0.0-1.5) % Nucleated RBC % 0.0 /100WBC Absolute Seg Neuts 3.7 Band Neutrophils # 0.1 Lymphocytes # (Manual) 1.3 Monocytes # (Manual) 0.5 Eosinophils # (Manual) 0.1 Basophils # (Manual) 0 Nucleated RBCs # 0 K/uL Sodium 133 L (136-146) mmol/L Potassium 3.6 (3.5-5.1) mmol/L Chloride 109 (98-110) mmol/L Carbon Dioxide 20 L (21-31) mmol/L BUN 12 (6.0-23.0) mg/dL Creatinine 0.7 (0.6-1.5) mg/dL Est Cr Clr Drug Dosing 130.02 mL/min Estimated GFR (MDRD) > 60.0 ml/min Glucose 98 (60-110) mg/dL Calcium 7.6 L (8.8-10.8) mg/dL Total Bilirubin 1.5 (0.1-1.5) mg/dL AST 38 (5-40) IU/L ALT 29 (8-54) IU/L Alkaline Phosphatase 50 (40-150) Total Protein 4.9 L (6.0-8.0) g/dL Albumin 2.7 L (3.5-5.0) g/dL Globulin 2.2 (2.0-3.5) g/dL Albumin/Globulin Ratio 1.2 L (1.3-2.8) Med Orders - Current: Current Medications Hydromorphone HCl (Dilaudid) 0.5 mg IVPUSH Q2H PRN PRN Reason: Pain (severe 7-10) Last Admin: 02/04/17 08:05 Dose: 0.5 mg Pantoprazole Sodium 80 mg/ (Sodium Chloride) 100 mls @ 10 mls/hr IV Q10H JANEE Last Admin: 02/04/17 01:59 Dose: 10 mls/hr Lorazepam (Ativan) 0 mg IVPUSH Q4H PRN; Protocol PRN Reason: CIWAA Ondansetron HCl (Zofran) 4 mg IVPUSH Q6H JANEE Last Admin: 02/04/17 06:45 Dose: 4 mg Sodium Chloride (Saline Flush) 10 ml FLUSH ASDIRECTED PRN PRN Reason: Keep Vein Open Sodium Chloride (Saline Flush) 2.5 ml FLUSH ASDIRECTED PRN PRN Reason: Keep Vein Open Discontinued Medications Diphenhydramine HCl (Benadryl) 25 mg IV ONETIME ONE Stop: 02/01/17 13:23 Last Admin: 02/01/17 14:33 Dose: 25 mg Fentanyl (Sublimaze) Confirm Administered Dose 100 mcg .ROUTE .STK-MED ONE Stop: 02/02/17 08:55 Last Admin: 02/02/17 11:01 Dose: Not Given Furosemide (Lasix) 20 mg IVPUSH ONETIME ONE Stop: 02/01/17 13:23 Last Admin: 02/01/17 14:33 Dose: 20 mg Furosemide (Lasix) 20 mg IVPUSH ONETIME ONE Stop: 02/03/17 10:08 Last Admin: 02/03/17 10:22 Dose: 20 mg Sodium Chloride (Normal Saline) 1,000 mls @ 999 mls/hr IV STAT ONE Stop: 02/01/17 12:44 Last Admin: 02/01/17 12:02 Dose: 999 mls/hr Pantoprazole Sodium 80 mg/ (Sodium Chloride) 100 mls @ 10 mls/hr IV .Continuous JANEE Last Admin: 02/01/17 22:45 Dose: 10 mls/hr Sodium Chloride (Normal Saline) 1,000 mls @ 175 mls/hr IV ASDIRECTED JANEE Last Admin: 02/03/17 04:54 Dose: 175 mls/hr Propofol (Diprivan 50 Ml) Confirm Administered Dose 50 mls @ as directed .ROUTE .STK-MED ONE Stop: 02/02/17 08:56 Last Admin: 02/02/17 11:01 Dose: Not Given Magnesium Sulfate 2 gm/ Premix 50 mls @ 50 mls/hr IV ONETIME ONE Stop: 02/03/17 08:15 Last Admin: 02/03/17 07:34 Dose: 50 mls/hr Iopamidol (Isovue-370 (76%)) 100 ml IVPUSH ONETIME STA Stop: 02/03/17 07:53 Last Admin: 02/03/17 07:55 Dose: 100 ml Midazolam HCl (Versed 1 Mg/Ml) Confirm Administered Dose 2 mg .ROUTE .STK-MED ONE Stop: 02/02/17 08:54 Last Admin: 02/02/17 11:01 Dose: Not Given Ondansetron HCl (Zofran) 4 mg IVPUSH STAT STA Stop: 02/01/17 12:52 Last Admin: 02/01/17 12:56 Dose: 4 mg Pantoprazole Sodium (Protonix Iv) 80 mg IVPUSH .BOLUS ONE Stop: 02/01/17 12:35 Last Admin: 02/01/17 12:45 Dose: 80 mg - Exam General: alert, oriented HEENT: Pupils equal, Pupils reactive Lungs: Clear to auscultation, Normal respiratory effort Cardiovascular: Regular Rate, Regular Rhythm Abdomen: bowel sounds present, soft, no tenderness, no distension - Problem List & Annotations (1) GI bleed SNOMED Code(s): 97873145 Code(s): K92.2 - GASTROINTESTINAL HEMORRHAGE, UNSPECIFIED Status: Acute Priority: High Current Visit: Yes Qualifiers: GI bleed type/associated pathology: unspecified gastrointestinal hemorrhage type Qualified Code(s): K92.2 - Gastrointestinal hemorrhage, unspecified Annotation/Comment:: no active bleeding site per surgeon (2) Acute left ankle pain SNOMED Code(s): 84509716069683 Code(s): M25.572 - PAIN IN LEFT ANKLE AND JOINTS OF LEFT FOOT Status: Acute Current Visit: Yes - Problem List Review Problem List Initiated/Reviewed/Updated: Yes - Plan Plan:: Patient is stable at this point with no clinical signs of bleeding. Plts and hgb stable. Agree with ongoing diuresis. Recommend colonoscopy as an outpatient with me. Would establish a PCP on discharge to manage cirrhosis. If ankle pain not improving could be seen in orthopedic clinic. PT may be beneficial since patient having difficult time ambulating. Will sign off at this point in time. If any new issues arise or there are questions or concerns please call at any time. Appreciate medicines care of patient.
[2017-02-04] MEDS: Propranolol 20 MG Tab PO SCH ×2 (09:31→17:47)
[2017-02-04] MEDS: Pantoprazole 40 MG Tab.CR PO SCH ×2 (09:31→17:49)
[2017-02-04] MEDS: Lactulose Soln 10 GM/15 ML 15 ML UD Cup PO SCH ×2 (09:31→21:28)
--- NOTE | 2017-02-04 11:47 | PCM.PN ---
- General Info Date of Service: 02/04/17 Admission Dx/Problem (Free Text): gi bleeding appears ended, H&H stabilize Functional Status: Denies: pain controlled (ankle still very some, getting dilaudid several tomes a da) - Review of Systems HEENT: Reports: no symptoms Pulmonary: Reports: no symptoms Cardiovascular: Reports: No Symptoms Gastrointestinal: Reports: No symptoms Genitourinary: Reports: no symptoms Musculoskeletal: Reports: foot pain Skin: Reports: no symptoms - Patient Data Vitals - most recent: Last Vital Signs Temp 37.1 C 02/04/17 08:00 Pulse 87 02/04/17 10:00 Resp 18 02/04/17 10:00 BP 112/63 02/04/17 10:00 Pulse Ox 98 02/04/17 10:00 Weight - most recent: 122.3 kg I&O - last 24 hours: Intake & Output 02/03/17 02/04/17 02/04/17 22:59 06:59 14:59 Intake Total 3150 1900 90 Output Total 2600 1280 Balance 550 620 90 Lab Results last 24 hrs: Laboratory Results - last 24 hr 02/04/17 02/04/17 Range/Units 06:56 06:56 WBC 5.74 (4.0-11.0) K/uL RBC 2.47 L (4.50-5.90) M/uL Hgb 7.8 L (13.0-17.0) g/dL Hct 22.7 L (38.0-50.0) % MCV 91.9 (80.0-98.0) fL MCH 31.6 (27.0-32.0) pg MCHC 34.4 (31.0-37.0) g/dL RDW Std Deviation 55.3 (28.0-62.0) fl RDW Coeff of [place] 17 H (11.0-15.0) % Plt Count 56 L (150-400) K/uL MPV 10.80 (7.40-12.00) fL Add Manual Diff YES Neutrophils % (Manual) 64 (48.0-80.0) % Band Neutrophils % 2 % Lymphocytes % (Manual) 22 (16.0-40.0) % Monocytes % (Manual) 9 (0.0-15.0) % Eosinophils % (Manual) 2 (0.0-7.0) % Basophils % (Manual) 1 (0.0-1.5) % Nucleated RBC % 0.0 /100WBC Absolute Seg Neuts 3.7 Band Neutrophils # 0.1 Lymphocytes # (Manual) 1.3 Monocytes # (Manual) 0.5 Eosinophils # (Manual) 0.1 Basophils # (Manual) 0 Nucleated RBCs # 0 K/uL Sodium 133 L (136-146) mmol/L Potassium 3.6 (3.5-5.1) mmol/L Chloride 109 (98-110) mmol/L Carbon Dioxide 20 L (21-31) mmol/L BUN 12 (6.0-23.0) mg/dL Creatinine 0.7 (0.6-1.5) mg/dL Est Cr Clr Drug Dosing 130.02 mL/min Estimated GFR (MDRD) > 60.0 ml/min Glucose 98 (60-110) mg/dL Calcium 7.6 L (8.8-10.8) mg/dL Total Bilirubin 1.5 (0.1-1.5) mg/dL AST 38 (5-40) IU/L ALT 29 (8-54) IU/L Alkaline Phosphatase 50 (40-150) Total Protein 4.9 L (6.0-8.0) g/dL Albumin 2.7 L (3.5-5.0) g/dL Globulin 2.2 (2.0-3.5) g/dL Albumin/Globulin Ratio 1.2 L (1.3-2.8) Med Orders - Current: Current Medications Hydromorphone HCl (Dilaudid) 0.5 mg IVPUSH Q2H PRN PRN Reason: Pain (severe 7-10) Last Admin: 02/04/17 08:05 Dose: 0.5 mg Lactulose (Chronulac) 10 gm PO BID [facility] Last Admin: 02/04/17 09:31 Dose: 10 gm Lorazepam (Ativan) 0 mg IVPUSH Q4H PRN; Protocol PRN Reason: CIWAA Ondansetron HCl (Zofran) 4 mg IVPUSH Q6H [facility] Last Admin: 02/04/17 06:45 Dose: 4 mg Oxycodone HCl (Oxycodone) 5 mg PO Q8H PRN PRN Reason: Pain Pantoprazole Sodium (Protonix) 40 mg PO BIDAC JANEE Last Admin: 02/04/17 09:31 Dose: 40 mg Propranolol HCl (Inderal) 20 mg PO Q8H JANEE Last Admin: 02/04/17 09:31 Dose: 20 mg Sodium Chloride (Saline Flush) 10 ml FLUSH ASDIRECTED PRN PRN Reason: Keep Vein Open Sodium Chloride (Saline Flush) 2.5 ml FLUSH ASDIRECTED PRN PRN Reason: Keep Vein Open Discontinued Medications Diphenhydramine HCl (Benadryl) 25 mg IV ONETIME ONE Stop: 02/01/17 13:23 Last Admin: 02/01/17 14:33 Dose: 25 mg Fentanyl (Sublimaze) Confirm Administered Dose 100 mcg .ROUTE .STK-MED ONE Stop: 02/02/17 08:55 Last Admin: 02/02/17 11:01 Dose: Not Given Furosemide (Lasix) 20 mg IVPUSH ONETIME ONE Stop: 02/01/17 13:23 Last Admin: 02/01/17 14:33 Dose: 20 mg Furosemide (Lasix) 20 mg IVPUSH ONETIME ONE Stop: 02/03/17 10:08 Last Admin: 02/03/17 10:22 Dose: 20 mg Sodium Chloride (Normal Saline) 1,000 mls @ 999 mls/hr IV STAT ONE Stop: 02/01/17 12:44 Last Admin: 02/01/17 12:02 Dose: 999 mls/hr Pantoprazole Sodium 80 mg/ (Sodium Chloride) 100 mls @ 10 mls/hr IV .Continuous JANEE Last Admin: 02/01/17 22:45 Dose: 10 mls/hr Sodium Chloride (Normal Saline) 1,000 mls @ 175 mls/hr IV ASDIRECTED JANEE Last Admin: 02/03/17 04:54 Dose: 175 mls/hr Propofol (Diprivan 50 Ml) Confirm Administered Dose 50 mls @ as directed .ROUTE .STK-MED ONE Stop: 02/02/17 08:56 Last Admin: 02/02/17 11:01 Dose: Not Given Pantoprazole Sodium 80 mg/ (Sodium Chloride) 100 mls @ 10 mls/hr IV Q10H [facility] Last Admin: 02/04/17 01:59 Dose: 10 mls/hr Magnesium Sulfate 2 gm/ Premix 50 mls @ 50 mls/hr IV ONETIME ONE Stop: 02/03/17 08:15 Last Admin: 02/03/17 07:34 Dose: 50 mls/hr Iopamidol (Isovue-370 (76%)) 100 ml IVPUSH ONETIME STA Stop: 02/03/17 07:53 Last Admin: 02/03/17 07:55 Dose: 100 ml Midazolam HCl (Versed 1 Mg/Ml) Confirm Administered Dose 2 mg .ROUTE .STK-MED ONE Stop: 02/02/17 08:54 Last Admin: 02/02/17 11:01 Dose: Not Given Ondansetron HCl (Zofran) 4 mg IVPUSH STAT STA Stop: 02/01/17 12:52 Last Admin: 02/01/17 12:56 Dose: 4 mg Pantoprazole Sodium (Protonix Iv) 80 mg IVPUSH .BOLUS ONE Stop: 02/01/17 12:35 Last Admin: 02/01/17 12:45 Dose: 80 mg - Exam General: alert, oriented Lungs: Clear to auscultation, Decreased breath sounds Cardiovascular: Regular Rate Abdomen: bowel sounds present (Male) Exam: Deferred Extremities: other (foot wrapped) - Problem List Review Problem List Initiated/Reviewed/Updated: Yes - My Orders Last 24 Hours: My Active Orders 02/03/17 Lunch Regular Diet [DIET] 02/04/17 10:05 Transfer Patient (Change bed) [ADT] Routine 02/04/17 10:33 oxyCODONE 5 mg PO Q8H PRN - Assessment Assessment:: Hemoglobin reported as 7.5 this am vs 11g last year. Rpeat 8.1. I&O markedly positive, will decrease ivs and diurese no evidence of firther bleeding remains in positive fluid balance due to very high oral fluid intake - Plan Plan:: Patient is stable at this point with no clinical signs of bleeding. Plts and hgb stable. Agree with ongoing diuresis. Recommend colonoscopy as an outpatient with me. Would establish a PCP on discharge to manage cirrhosis. If ankle pain not improving could be seen in orthopedic clinic. PT may be beneficial since patient having difficult time ambulating. Will sign off at this point in time. If any new issues arise or there are questions or concerns please call at any time. Appreciate medicines care of patient. will change to Med Surg status. Start oral pain meds, hope to d/c riana
[2017-02-04] MEDS ORDERED: Ondansetron 4 MG/2 ML SDV IVPUSH PRN (12:55)
[2017-02-04] MEDS: oxyCODONE 5 MG Tab PO PRN (17:47)
[2017-02-05] MEDS: Propranolol 20 MG Tab PO SCH ×2 (01:56→08:18)
[2017-02-05] MEDS: oxyCODONE 5 MG Tab PO PRN ×3 (02:14→13:10)
[2017-02-05] MEDS: Pantoprazole 40 MG Tab.CR PO SCH (08:18)
[2017-02-05] MEDS: Lactulose Soln 10 GM/15 ML 15 ML UD Cup PO SCH (08:20)
--- NOTE | 2017-02-05 12:11 | PCM.PN ---
- General Info Date of Service: 02/05/17 Functional Status: Denies: pain controlled (ankle still very sore, barely able to sloep even with oxycodone) - Review of Systems General: Reports: No Symptoms HEENT: Reports: no symptoms Pulmonary: Reports: no symptoms Cardiovascular: Reports: No Symptoms Gastrointestinal: Reports: No symptoms, Other (still no BM since saturday, says that is usual for him) Genitourinary: Reports: no symptoms Musculoskeletal: Reports: foot pain - Patient Data Vitals - most recent: Last Vital Signs Temp 36.5 C 02/05/17 08:00 Pulse 80 02/05/17 08:00 Resp 22 H 02/05/17 08:00 BP 117/60 02/05/17 08:00 Pulse Ox 96 02/05/17 08:00 Weight - most recent: 124.3 kg I&O - last 24 hours: Intake & Output 02/04/17 02/05/17 02/05/17 22:59 06:59 14:59 Intake Total 900 1100 Output Total 600 1200 Balance 300 -100 Lab Results last 24 hrs: Laboratory Results - last 24 hr 02/05/17 Range/Units 05:31 WBC 6.35 (4.0-11.0) K/uL RBC 2.46 L (4.50-5.90) M/uL Hgb 7.6 L (13.0-17.0) g/dL Hct 22.6 L (38.0-50.0) % MCV 91.9 (80.0-98.0) fL MCH 30.9 (27.0-32.0) pg MCHC 33.6 (31.0-37.0) g/dL RDW Std Deviation 54.7 (28.0-62.0) fl RDW Coeff of [place] 17 H (11.0-15.0) % Plt Count 73 L (150-400) K/uL MPV 11.20 (7.40-12.00) fL Nucleated RBC % 0.5 /100WBC Nucleated RBCs # 0 K/uL Med Orders - Current: Current Medications Hydromorphone HCl (Dilaudid) 0.5 mg IVPUSH Q2H PRN PRN Reason: Pain (severe 7-10) Last Admin: 02/04/17 08:05 Dose: 0.5 mg Lactulose (Chronulac) 10 gm PO BID JANEE Last Admin: 02/05/17 08:20 Dose: Not Given Lorazepam (Ativan) 0 mg IVPUSH Q4H PRN; Protocol PRN Reason: CIWAA Ondansetron HCl (Zofran) 4 mg IVPUSH Q4H PRN PRN Reason: Nausea/Vomiting Oxycodone HCl (Oxycodone) 5 mg PO Q4H PRN PRN Reason: Pain Last Admin: 02/05/17 08:22 Dose: 5 mg Pantoprazole Sodium (Protonix) 40 mg PO BIDAC JANEE Last Admin: 02/05/17 08:18 Dose: 40 mg Propranolol HCl (Inderal) 20 mg PO Q8H JANEE Last Admin: 02/05/17 08:18 Dose: 20 mg Sodium Chloride (Saline Flush) 10 ml FLUSH ASDIRECTED PRN PRN Reason: Keep Vein Open Sodium Chloride (Saline Flush) 2.5 ml FLUSH ASDIRECTED PRN PRN Reason: Keep Vein Open Discontinued Medications Diphenhydramine HCl (Benadryl) 25 mg IV ONETIME ONE Stop: 02/01/17 13:23 Last Admin: 02/01/17 14:33 Dose: 25 mg Fentanyl (Sublimaze) Confirm Administered Dose 100 mcg .ROUTE .STK-MED ONE Stop: 02/02/17 08:55 Last Admin: 02/02/17 11:01 Dose: Not Given Furosemide (Lasix) 20 mg IVPUSH ONETIME ONE Stop: 02/01/17 13:23 Last Admin: 02/01/17 14:33 Dose: 20 mg Furosemide (Lasix) 20 mg IVPUSH ONETIME ONE Stop: 02/03/17 10:08 Last Admin: 02/03/17 10:22 Dose: 20 mg Sodium Chloride (Normal Saline) 1,000 mls @ 999 mls/hr IV STAT ONE Stop: 02/01/17 12:44 Last Admin: 02/01/17 12:02 Dose: 999 mls/hr Pantoprazole Sodium 80 mg/ (Sodium Chloride) 100 mls @ 10 mls/hr IV .Continuous JANEE Last Admin: 02/01/17 22:45 Dose: 10 mls/hr Sodium Chloride (Normal Saline) 1,000 mls @ 175 mls/hr IV ASDIRECTED JANEE Last Admin: 02/03/17 04:54 Dose: 175 mls/hr Propofol (Diprivan 50 Ml) Confirm Administered Dose 50 mls @ as directed .ROUTE .STK-MED ONE Stop: 02/02/17 08:56 Last Admin: 02/02/17 11:01 Dose: Not Given Pantoprazole Sodium 80 mg/ (Sodium Chloride) 100 mls @ 10 mls/hr IV Q10H [facility] Last Admin: 02/04/17 01:59 Dose: 10 mls/hr Magnesium Sulfate 2 gm/ Premix 50 mls @ 50 mls/hr IV ONETIME ONE Stop: 02/03/17 08:15 Last Admin: 02/03/17 07:34 Dose: 50 mls/hr Iopamidol (Isovue-370 (76%)) 100 ml IVPUSH ONETIME STA Stop: 02/03/17 07:53 Last Admin: 02/03/17 07:55 Dose: 100 ml Midazolam HCl (Versed 1 Mg/Ml) Confirm Administered Dose 2 mg .ROUTE .STK-MED ONE Stop: 02/02/17 08:54 Last Admin: 02/02/17 11:01 Dose: Not Given Ondansetron HCl (Zofran) 4 mg IVPUSH STAT STA Stop: 02/01/17 12:52 Last Admin: 02/01/17 12:56 Dose: 4 mg Ondansetron HCl (Zofran) 4 mg IVPUSH Q6H [facility] Last Admin: 02/04/17 06:45 Dose: 4 mg Oxycodone HCl (Oxycodone) 5 mg PO Q8H PRN PRN Reason: Pain Last Admin: 02/05/17 02:14 Dose: 5 mg Pantoprazole Sodium (Protonix Iv) 80 mg IVPUSH .BOLUS ONE Stop: 02/01/17 12:35 Last Admin: 02/01/17 12:45 Dose: 80 mg - Exam General: alert, oriented Neck: supple Lungs: Clear to auscultation Cardiovascular: Regular Rate Abdomen: bowel sounds present (Male) Exam: Deferred Extremities: edema (1-2+ on left. Better ROM though with pain) - Problem List Review Problem List Initiated/Reviewed/Updated: Yes - My Orders Last 24 Hours: My Active Orders 02/04/17 12:55 Ondansetron [Zofran] 4 mg IVPUSH Q4H PRN - Assessment Assessment:: Hemoglobin reported as 7.5 this am vs 11g last year. Rpeat 8.1. I&O markedly positive, will decrease ivs and diurese no evidence of further bleeding remains in positive fluid balance due to very high oral fluid intake Hemoglobin stable 7.6 post variceal bleed ankle sprain improving slowly Will D/C on higher dose oxycodone for hs avoid tylenol, alcohol off work til 8 february - Plan Plan:: Patient is stable at this point with no clinical signs of bleeding. Plts and hgb stable. Agree with ongoing diuresis. Recommend colonoscopy as an outpatient with me. Would establish a PCP on discharge to manage cirrhosis. If ankle pain not improving could be seen in orthopedic clinic. PT may be beneficial since patient having difficult time ambulating. Will sign off at this point in time. If any new issues arise or there are questions or concerns please call at any time. Appreciate medicines care of patient. will change to Med Surg status. Start oral pain meds, hope to d/c dilaudid
--- NOTE | 2017-02-05 12:22 | PCM.DCSUM1 ---
Discharge Summary - Hospital Course Free Text/Narrative:: admitted with hematemesis and melena. Found to have esophageal varices. Hemoglobin stabilized aroun 8g with no further bleeding. Had also spained Left ankle which require pain medication to allow him to sleep Dilaudid made him a bit dysphoric but oxycodone5 was less effective so dose was increased - Discharge Data Discharge Date: 02/05/17 Discharge Disposition: Home, Self-Care 01 Condition: Fair - Patient Summary/Data Operative Procedure(s) Performed: Diagnostic EGD Consults: Consultations 02/01/17 13:12 Consult to Physician [CONS] Routine - Patient Instructions Diet: Usual Diet as Tolerated, No Alcoholic Beverages Activity, Other: return to work 11 february - Discharge Plan Prescriptions/Med Rec: Lactulose [Chronulac] 15 gm PO DAILY #30 cup Pantoprazole [ProTONIX] 40 mg PO BIDAC #30 tab.cr Propranolol [Inderal] 20 mg PO Q8H #90 tablet oxyCODONE 10 mg PO Q8H PRN #30 tablet PRN Reason: Pain Home Medications: Home Meds Lisinopril 10 mg PO DAILY 01/26/17 [History] Lactulose [Chronulac] 15 gm PO DAILY #30 cup 02/05/17 [Rx] Pantoprazole [ProTONIX] 40 mg PO BIDAC #30 tab.cr 02/05/17 [Rx] Propranolol [Inderal] 20 mg PO Q8H #90 tablet 02/05/17 [Rx] oxyCODONE 10 mg PO Q8H PRN #30 tablet 02/05/17 [Rx] Patient Handouts: Gastrointestinal Bleeding, [id number] Forms: ED Department Discharge Referrals: PCP,None [Primary Care Provider] - - Patient Data Vitals - Most Recent: Last Vital Signs Temp 36.5 C 02/05/17 08:00 Pulse 80 02/05/17 08:00 Resp 22 H 02/05/17 08:00 BP 117/60 02/05/17 08:00 Pulse Ox 96 02/05/17 08:00 Weight - Most Recent: 124.3 kg I&O - Last 24 hours: Intake & Output 02/04/17 02/05/17 02/05/17 22:59 06:59 14:59 Intake Total 900 1100 Output Total 600 1200 Balance 300 -100 Lab Results - Last 24 hrs: Laboratory Results - last 24 hr 02/05/17 Range/Units 05:31 WBC 6.35 (4.0-11.0) K/uL RBC 2.46 L (4.50-5.90) M/uL Hgb 7.6 L (13.0-17.0) g/dL Hct 22.6 L (38.0-50.0) % MCV 91.9 (80.0-98.0) fL MCH 30.9 (27.0-32.0) pg MCHC 33.6 (31.0-37.0) g/dL RDW Std Deviation 54.7 (28.0-62.0) fl RDW Coeff of [place] 17 H (11.0-15.0) % Plt Count 73 L (150-400) K/uL MPV 11.20 (7.40-12.00) fL Nucleated RBC % 0.5 /100WBC Nucleated RBCs # 0 K/uL Med Orders - Current: Current Medications Hydromorphone HCl (Dilaudid) 0.5 mg IVPUSH Q2H PRN PRN Reason: Pain (severe 7-10) Last Admin: 02/04/17 08:05 Dose: 0.5 mg Lactulose (Chronulac) 10 gm PO BID [facility] Last Admin: 02/05/17 08:20 Dose: Not Given Lorazepam (Ativan) 0 mg IVPUSH Q4H PRN; Protocol PRN Reason: CIWAA Ondansetron HCl (Zofran) 4 mg IVPUSH Q4H PRN PRN Reason: Nausea/Vomiting Oxycodone HCl (Oxycodone) 5 mg PO Q4H PRN PRN Reason: Pain Last Admin: 02/05/17 08:22 Dose: 5 mg Pantoprazole Sodium (Protonix) 40 mg PO BIDAC JANEE Last Admin: 02/05/17 08:18 Dose: 40 mg Propranolol HCl (Inderal) 20 mg PO Q8H [facility] Last Admin: 02/05/17 08:18 Dose: 20 mg Sodium Chloride (Saline Flush) 10 ml FLUSH ASDIRECTED PRN PRN Reason: Keep Vein Open Sodium Chloride (Saline Flush) 2.5 ml FLUSH ASDIRECTED PRN PRN Reason: Keep Vein Open Discontinued Medications Diphenhydramine HCl (Benadryl) 25 mg IV ONETIME ONE Stop: 02/01/17 13:23 Last Admin: 02/01/17 14:33 Dose: 25 mg Fentanyl (Sublimaze) Confirm Administered Dose 100 mcg .ROUTE .STK-MED ONE Stop: 02/02/17 08:55 Last Admin: 02/02/17 11:01 Dose: Not Given Furosemide (Lasix) 20 mg IVPUSH ONETIME ONE Stop: 02/01/17 13:23 Last Admin: 02/01/17 14:33 Dose: 20 mg Furosemide (Lasix) 20 mg IVPUSH ONETIME ONE Stop: 02/03/17 10:08 Last Admin: 02/03/17 10:22 Dose: 20 mg Sodium Chloride (Normal Saline) 1,000 mls @ 999 mls/hr IV STAT ONE Stop: 02/01/17 12:44 Last Admin: 02/01/17 12:02 Dose: 999 mls/hr Pantoprazole Sodium 80 mg/ (Sodium Chloride) 100 mls @ 10 mls/hr IV .Continuous JANEE Last Admin: 02/01/17 22:45 Dose: 10 mls/hr Sodium Chloride (Normal Saline) 1,000 mls @ 175 mls/hr IV ASDIRECTED JANEE Last Admin: 02/03/17 04:54 Dose: 175 mls/hr Propofol (Diprivan 50 Ml) Confirm Administered Dose 50 mls @ as directed .ROUTE .STK-MED ONE Stop: 02/02/17 08:56 Last Admin: 02/02/17 11:01 Dose: Not Given Pantoprazole Sodium 80 mg/ (Sodium Chloride) 100 mls @ 10 mls/hr IV Q10H JANEE Last Admin: 02/04/17 01:59 Dose: 10 mls/hr Magnesium Sulfate 2 gm/ Premix 50 mls @ 50 mls/hr IV ONETIME ONE Stop: 02/03/17 08:15 Last Admin: 02/03/17 07:34 Dose: 50 mls/hr Iopamidol (Isovue-370 (76%)) 100 ml IVPUSH ONETIME STA Stop: 02/03/17 07:53 Last Admin: 02/03/17 07:55 Dose: 100 ml Midazolam HCl (Versed 1 Mg/Ml) Confirm Administered Dose 2 mg .ROUTE .STK-MED ONE Stop: 02/02/17 08:54 Last Admin: 02/02/17 11:01 Dose: Not Given Ondansetron HCl (Zofran) 4 mg IVPUSH STAT STA Stop: 02/01/17 12:52 Last Admin: 02/01/17 12:56 Dose: 4 mg Ondansetron HCl (Zofran) 4 mg IVPUSH Q6H JANEE Last Admin: 02/04/17 06:45 Dose: 4 mg Oxycodone HCl (Oxycodone) 5 mg PO Q8H PRN PRN Reason: Pain Last Admin: 02/05/17 02:14 Dose: 5 mg Pantoprazole Sodium (Protonix Iv) 80 mg IVPUSH .BOLUS ONE Stop: 02/01/17 12:35 Last Admin: 02/01/17 12:45 Dose: 80 mg *Q Meaningful Use (DIS) - VTE *Q VTE Criteria *Q: VTE Mechanical Contraindications *Q: At Risk for Falls VTE Pharmacological Contraindications *Q: Active Hemorrhage - Stroke *Q Stroke Criteria *Q: - AMI *Q AMI Criteria *Q:
[2017-02-05 12:24] VITALS: BP 140/76
== END 2017-02-05 13:41 | disposition home or self-care (01) | DRG 242 ==
LOC: MW.ED 11:42 → MW.ICU 12:47 → MW.MS 02-04 15:33
PROVIDERS: ADMIT Internal Medicine; ATTEND Internal Medicine
PROC: 30233N1 Transfusion of Nonautologous Red Blood Cells into Peripheral Vein, Percutaneous Approach (ICD-10-PCS; 2017-02-01)
PROC: 0DB78ZX Excision of Stomach, Pylorus, Via Natural or Artificial Opening Endoscopic, Diagnostic (ICD-10-PCS; principal; 2017-02-02)
DX: I85.01 Esophageal varices with bleeding (principal); K29.70 Gastritis, unspecified, without bleeding; K29.80 Duodenitis without bleeding; I10 Essential (primary) hypertension; K21.9 Gastro-esophageal reflux disease without esophagitis; D68.9 Coagulation defect, unspecified; D69.6 Thrombocytopenia, unspecified; D62 Acute posthemorrhagic anemia; R00.0 Tachycardia, unspecified; Z79.899 Other long term (current) drug therapy
CPT/HCPCS: 00740; 36415; 36430; 70450; 70450-26; 71010; 71010-26; 73600-26-LT; 73600-LT; 74174; 74174-26; 76705; 76705-26; 80053; 81001; 82150; 83735; 84100; 85018; 85025; 85027; 85610; 86850; 86900; 86901; 86920; 86921; 86922; 88305; 88312; 93005; 96361; 96374; 96375; 96376; 99285; 99285-25; A9270-GY; C9113; G0480; J1170; J1200; J2405; J3475; J7030; J7040; P9016; Q9967